=== PATIENT | male | born 1940 | race Caucasian/White ===

== ENCOUNTER 2016-09-25 06:15 | Inpatient (IN) | payer OTHER, MEDICARE ==
[~2016-09-25] VITALS: Ht 165.1 cm; Wt 72.6 kg
[~2016-09-25 06:15] MED LIST: ARTIFICIAL TEAR15 M2 OP; ASPIR 8181 MG PO; ATENOLOL50 MG PO; CALCIPOTRIENE0.0051 TOP; CITALOPRAM20 MG PO; HYDRODIURIL 2525 MG PO; LISINOPRIL20 MG PO; MULTIVITAMIN1 TAB PO; OMEPRAZOLE20 MG PO; PRESERVISION AR1 SGL PO; SIMVASTATIN80 MG PO; VESICARE 10MG10 MG PO
--- NOTE | 2016-09-25 06:19 | NUR ---
PT BIBA C/O INCREASING SOB. PT WAS DX WITH BRONCHITIS X2 WEEKS AGO. PT WOKE UP, AMBULATED TO THE BATHROOM, FELT SOB AND DID NOT EXPERIENCE RELIEF WITH HOME INHALER. UPON EMS ARRIVAL PT WAS 90% ON ROOM AIR, RECIEVED DUO NEB FROM EMS, NOW 97%. PT REPORTS FULL RELIEF FROM DUONEB.
--- NOTE | 2016-09-25 06:25 | NUR ---
MD SAM AT BEDSIDE EVALUATING PATIENT.
--- NOTE | 2016-09-25 06:34 | ED DYSPNEA/ASTHMA COMPLAINT ---
History of Present Illness General Chief Complaint: Dyspnea (COPD, CHF, Other) Stated Complaint: BIBA COPD? Source: patient, family, EMS Exam Limitations: no limitations Vital Signs & Intake/Output Vital Signs & Intake/Output Vital Signs Date Time Temp Pulse Resp B/P B/P Pulse O2 O2 Flow FiO2 Mean Ox Delivery Rate 09/25 0853 98.2 68 18 141/81 95 Nasal 2.0L Cannula 09/25 0835 97 Nasal 2.0L Cannula 09/25 0810 98.0 87 16 105/56 97 Nasal 2.0L Cannula 09/25 0657 99 Aerosol 9L Mask 09/25 621 97.7 62 20 172/86 99 Aerosol 6.0L Mask Allergies Coded Allergies: donepezil (From ARII-lighting) (Intermediate, VOMITTING 09/25/16) red dye (ONCE 09/25/16) Triage Note: PT BIBA C/O INCREASING SOB. PT WAS DX WITH BRONCHITIS X2 WEEKS AGO. PT WOKE UP, AMBULATED TO THE BATHROOM, FELT SOB AND DID NOT EXPERIENCE RELIEF WITH HOME INHALER. UPON EMS ARRIVAL PT WAS 90% ON ROOM AIR, RECIEVED DUO NEB FROM EMS, NOW 97%. PT REPORTS FULL RELIEF FROM DUONEB. Triage Nurses Notes Reviewed? yes Onset: Gradual Duration: hour(s): Timing: recent history Severity: moderate Activities at Onset: none Prior Episodes/Possible Cause: no prior episodes Modifying Factors: Improves With: rest. Associated Symptoms: cough, wheezing HPI: 75yo gentleman, h/o bronchitis, s/p abx last week, presents with cough, wheezing, dyspnea after waking up and going to the bathroom. He notes shortness of breath, but no fever, chills, chest pain. 911 called. His 02 sat was 90% on room air. He improved with a duo neb and 2liters nasal cannula to 97% 02 sat. (CECY RODRIGUEZ,NATASHA Clemons) Reconcile Medications Albuterol Sulfate (Proair Hfa) 90 MCG HFA.AER.AD 2 PUF INH Q4-6 PRN PRN SOB ( Reported) Aspirin (Aspirin*) 81 MG TAB.CHEW 1 TAB PO DAILY (Reported) Atenolol 50 MG TABLET 1.5 TAB PO DAILY HTN (Reported) Citalopram Hydrobromide (Citalopram HBr) 20 MG TABLET 1 TAB PO DAILY ANXIETY (Reported) Cyanocobalamin (Vitamin B-12) (Vitamin B12) 5,000 MCG TAB.RAPDIS 1,000 MCG PO DAILY SUPPLEMENT (Reported) Doxycycline Hyclate 100 MG CAPSULE 1 CAP PO BID PULMONARY INFILTRATES ( Reported) Finasteride 5 MG TABLET 1 TAB PO DAILY (Reported) Folic Acid 1 MG TABLET 1 TAB PO DAILY (Reported) Hydrochlorothiazide 25 MG TABLET 1 TAB PO DAILY HTN (Reported) Lisinopril 20 MG TABLET 1 TAB PO DAILY HTN (Reported) Methotrexate 2.5 MG TABLET 6 TAB PO QW (Reported) Multiple Vitamin (Multivitamins) 1 EACH TABLET 1 TAB PO DAILY (Reported) Omeprazole 20 MG CAPSULE.DR 1 CAP PO DAILY GERD (Reported) Simvastatin (Simvastatin*) 80 MG TABLET 0.5 TAB PO DAILY HIGH CHOLESTEROL ( Reported) Tamsulosin HCl 0.4 MG CAP.ER.24H 1 CAP PO DAILY BPH (Reported) (CARLA ORR DO) Past History Travel History Traveled to [place] past 21 day No Medical History Any Pertinent Medical History? 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 No (CECY RODRIGUEZ,NATASHA Clemons) Review of Systems Review of Systems Constitutional: Reports: no symptoms. EENTM: Reports: no symptoms. Respiratory: Reports: no symptoms. Cardiovascular: Reports: no symptoms. GI: Reports: no symptoms. Genitourinary: Reports: no symptoms. Musculoskeletal: Reports: no symptoms. Skin: Reports: no symptoms. Neurological/Psychological: Reports: no symptoms. Hematologic/Endocrine: Reports: no symptoms. Immunologic/Allergic: Reports: no symptoms. All Other Systems: Reviewed and Negative (CECY RODRIGUEZ,NATASHA Clemons) Physical Exam Physical Exam General Appearance: well developed/nourished, mild distress Head: atraumatic, normal appearance Eyes: Bilateral: normal appearance. Ears, Nose, Throat: normal pharynx, normal ENT inspection Neck: normal inspection, supple, full range of motion Respiratory: wheezing, respiratory distress Cardiovascular: regular rate/rhythm Gastrointestinal: normal bowel sounds, soft, non-tender Extremities: normal inspection, normal capillary refill Neurologic/Psych: no motor/sensory deficits, awake, alert, oriented x 3 Skin: intact, normal color, warm/dry Core Measures ACS in differential dx? No Severe Sepsis Present: No Septic Shock Present: No (CECY RODRIGUEZ,NATASHA Clemons) Progress Differential Diagnosis: asthma, bronchitis, CHF, COPD, pneumonia Plan of Care: Orders Procedure Date/time Status Heart Healthy Diet 09/25 L Active ED Holding Orders 09/25 1031 Active Admit to inpatient 09/25 1031 Active Vital Signs 09/25 1031 Active Code Status 09/25 1031 Active BLOOD CULTURE 09/26 639 Active BLOOD CULTURE 09/25 636 Active TROPONIN LEVEL 09/25 636 Complete COMPREHENSIVE METABOLIC PANEL 09/25 636 Complete CBC WITHOUT DIFFERENTIAL 09/25 636 Complete B-TYPE NATRIURETIC PEP (BNP) 09/25 636 Complete EKG 09/25 636 Active Laboratory Tests 09/25/16 0718: Anion Gap 10, Estimated GFR > 60, BUN/Creatinine Ratio 15.6, Glucose 107 H, Calcium 9.1, Total Bilirubin 0.8, AST 26, ALT 37, Alkaline Phosphatase 51, Troponin I < 0.01, Lhe-O-Phvqbfvlgub Pept 640 H, Total Protein 6.9, Albumin 3.7 , Globulin 3.2, Albumin/Globulin Ratio 1.2, CBC w Diff NO MAN DIFF REQ, RBC 4.14 L, MCV 100.2 H, MCH 33.7 H, RDW 14.5, MPV 8.6, Gran % 41.6 L, Lymphocytes % 43.8, Monocytes % 11.0 H, Eosinophils % 3.2, Basophils % 0.4, Absolute Granulocytes 1.5, Absolute Lymphocytes 1.6, Absolute Monocytes 0.4, Absolute Eosinophils 0.1, Absolute Basophils 0, PUBS MCHC 33.7 Microbiology 09/25 728 BLOOD: Blood Culture - RECD 09/25 720 BLOOD: Blood Culture - RECD Diagnostic Imaging: Viewed by Me: Radiology Read. Discussed w/RAD: Radiology Read. Initial ED EKG: normal axis, normal intervals, normal p-waves, normal QRS complex, normal sinus rhythm Hand-Off Endorsed To: CARLA ROR DO Endorsed Time: 0700 Pending: labs, Xray (CECY RODRIGUEZ,NATASHA Clemons) Departure Departure Disposition: STILL A PATIENT Condition: Stable Referrals: AHMET RODRIGUEZ,AHI Livingston (PCP/Family) Departure Forms: Customer Survey General Discharge Information (CECY RODRIGUEZ,NATASHA Clemons) Departure Clinical Impression Primary Impression: Dyspnea Secondary Impressions: COPD (chronic obstructive pulmonary disease), Hypokalemia , Ventricular ectopic activity Admission Note Spoke With: SARAH KUHN M.D Documentation of Exam: Documentation of any treatments & extenuating circumstances including Concerns Regarding Discharge (functional status, medication knowledge or non-compliance, living conditions, etc.) that warrant an admission rather than observation: [The patient needs admission for telemetry monitoring, potassium replacement, oxygen, consider pulmonary and cardiology consultations, IV steroids, IV diuresis] (CARLA ORR DO) Critical Care Note Critical Care Note Critical Care Time: 30-74 min (CECY RODRIGUEZ,NATASHA Clemons)
[2016-09-25] MEDS ORDERED: SIMVASTATIN80 M1 PO (06:35)
[2016-09-25] MEDS ORDERED: FINASTERIDE5 M1 PO (06:35)
[2016-09-25] MEDS ORDERED: PROAIR HFA8.5 GM INH (06:35)
[2016-09-25] MEDS ORDERED: CITALOPRAM HBR20 MG PO (06:35)
[2016-09-25] MEDS ORDERED: LISINOPRIL20 M1 PO (06:36)
[2016-09-25] MEDS ORDERED: DOXYCYCLINE HY100 M2 PO (06:36)
[2016-09-25] MEDS ORDERED: HYDROCHLOROTHIA25 M1 PO (06:36)
[2016-09-25] MEDS ORDERED: TAMSULOSIN HCL0.4 M1 PO (06:37)
[2016-09-25] MEDS ORDERED: OMEPRAZOLE20 M2 PO (06:49)
[2016-09-25] MEDS ORDERED: ASPIRIN81 M4 PO (06:50)
[2016-09-25] MEDS ORDERED: ATENOLOL50 M1 PO (06:50)
[2016-09-25] MEDS ORDERED: FOLIC ACID1 M1 PO (06:50)
[2016-09-25] MEDS ORDERED: METHOTREXATE2.5 M2 PO (06:50)
[2016-09-25] MEDS ORDERED: MULTIVITAMINS1 EAC9 PO (06:51)
[2016-09-25] MEDS ORDERED: VITAMIN B125000 MC1 PO (06:51)
--- NOTE | 2016-09-25 07:22 | RADIOLOGY REPORT ---
EXAMINATION: XR PORTABLE CHEST CLINICAL INFORMATION: Dyspnea. COMPARISON: Chest x-ray 08/26/2011. TECHNIQUE: Portable frontal view of the chest was obtained. FINDINGS: Low lung volumes. There is no pleural effusion or pneumothorax. Cardiac silhouette size is within normal limits. There is central vascular congestion and there are right perihilar and left suprahilar airspace opacities. No acute osseous findings. Bowel gas beneath the right hemidiaphragm. IMPRESSION: Central vascular congestion and mild right perihilar and left suprahilar airspace opacities that may reflect early edema versus pneumonia in the appropriate clinical context.
[2016-09-25 07:23] LABS: ABSOLUTE BASOPHIL COUNT 0 /CUMM (0.0-0.2); ABSOLUTE EOSINOPHIL COUNT 0.1 /CUMM (0.0-0.7); ABSOLUTE GRANULOCYTE CT 1.5 /CUMM (1.4-6.5); ABSOLUTE LYMPH COUNT 1.6 /CUMM (1.2-3.4); ABSOLUTE MONOCYTE COUNT 0.4 /CUMM (0.10-0.60); BASOPHIL % 0.4 % (0.0-2.0); EOSINOPHIL % 3.2 % (0-5); GRANULOCYTE % 41.6 % (42.2-75.2); HEMATOCRIT 41.5 % (42-52); MEAN CORPUSCULAR HGB 33.7 PG (27.0-31.0); MEAN CORPUSCULAR HGB CONC 33.7 G/DL (33.0-37.0); MEAN CORPUSCULAR VOLUME 100.2 FL (80.0-94.0); MEAN PLATELET VOLUME 8.6 FL (7.4-10.4); PLATELET COUNT 154 /CUMM (130-400); RBC DISTRIBUTION WIDTH 14.5 % (11.5-14.5); RED BLOOD CELL CT 4.14 /CUMM (4.70-6.10); WHITE BLOOD CELL COUNT 3.7 /CUMM (4.8-10.8)
--- NOTE | 2016-09-25 07:38 | NUR ---
BLOOD DRAWN AND SENT TO THE LAB (SST,LAV) 1ST SET OF CULTURES DRAWN AT 7:21 ALONG WITH ADDITIONAL BLUE,PINK AND COOL TOP 2ND SET OF BLOOD CULTURES DRAWN AT 7:29
--- NOTE | 2016-09-25 07:43 | NUR ---
MEDICATED ORDERED (SEE MAR)
--- NOTE | 2016-09-25 07:44 | NUR ---
CRITICAL TEST RESULTS [id number] HALEY AGUAYO 75 M TESTS AND RESULTS: POTASSIUM 2.7 Results received and read back by: ALAN GALVAN Results received date and time: 09/25/16 0744 The following provider was notified of the results, and read the results back: DR ORR Notified date and time: 09/25/16 at 0744
--- NOTE | 2016-09-25 08:15 | NUR ---
PT TRIALED ON ROOM AIR, STATES HE STARTED TO HAVE SOME TROUBLE BREATHING AGAIN. PLACED ON 2L O2 VIA NC, AND PT REPORTED THAT HE FELT BETTER AGAIN. SATS 97% WHILE ON 2L O2.
--- NOTE | 2016-09-25 10:03 | NUR ---
[facility] INFUSING (SEE MAR)
--- NOTE | 2016-09-25 10:35 | NUR ---
PT EATING HEART HEALTHY TRAY AT THIS TIME.
--- NOTE | 2016-09-25 10:35 | NUR ---
PT TO BE ADMITTED
--- NOTE | 2016-09-25 10:52 | NUR ---
PT ABLE TO STAND ON EDGE OF STETCHER TO USE COMMODE WITH ASSIST X1. PT REPOSITIONED IN BED. 2ND IV PLACED.
--- NOTE | 2016-09-25 12:12 | History & Physical ---
ANITHA CHOI 09/25/16 1150: General Information and HPI MD Statement: I have seen and personally examined HALEY AGUAYO and documented this H&P. The patient is a 75 year old M who presented with a patient stated chief complaint of [SHORTNESS OF BREATH]. Source of Information: patient, family Exam Limitations: no limitations History of Present Illness: Patient is a 75-year-old male with past medical history of hypertension, CVA, hyperlipidemia, GERD, macular degeneration, BPH, normal pressure hydrocephalus( gait and urinary problems) presented to the ED with a chief complaint of worsening shortness of breath for the past 1 month. Patient states that from Mother's Day he started having shortness of breath and dry cough. He was seen at the walk-in clinic and was diagnosed bronchitis. Received doxycycline(14 days), pro-air and DuoNeb's with no improvement in the shortness of breath. His dyspnea has worsened to the point that he is unable to walk from his bed to the bathroom. Therefore his called 911 to get him evaluated at the hospital. Is currently on 5 L of oxygen in the ER. Has no documented history of heart failure. Has seen a soap slabber Dr. Markell Richmond in [place] about 2 months ago for atypical chest pain and had an echocardiogram done. No documentation in our system. Patient denies any fevers, chills, nausea, vomiting, abdominal pain, chest pain, palpitations, urinary or bowel symptoms. No sick contacts, no recent travel. No history of orthopnea, leg swelling. Patient is an ex-smoker quit 30 years ago. In the ED on arrival, his sats was 90% on room air. He improved with a duo neb and 2liters nasal cannula to 97% 02 sat. He was very wheezy when the ER doctor examined him. Vitals in the ED :Temperature 97.7, pulse 62, respiration 20, blood pressure 172 /86, saturating 99% on 6 L aerosol mask. Labs showed white count 3.7, H&H 14/40 1.5, MCV 100.2, sodium 141, potassium 2.7 , BUN 14, creatinine 0.9, normal LFTs, troponin 0.01 Chest x-ray:Central vascular congestion and mild right perihilar and left suprahilar airspace opacities that may reflect early edema versus pneumonia. Patient received IV Solumedrol 125 mg, IV ceftriaxone and azithromycin and 20 KCl in the ED. Allergies/Medications Allergies: Coded Allergies: donepezil (From ARICEPT) (Intermediate, VOMITTING 09/25/16) red dye (ONCE 09/25/16) Home Med list Albuterol Sulfate (Proair Hfa) 90 MCG HFA.AER.AD 2 PUF INH Q4-6 PRN PRN SOB ( Reported) Aspirin (Aspirin*) 81 MG TAB.CHEW 1 TAB PO DAILY (Reported) Atenolol 50 MG TABLET 1.5 TAB PO DAILY HTN (Reported) Citalopram Hydrobromide (Citalopram HBr) 20 MG TABLET 1 TAB PO DAILY ANXIETY (Reported) Cyanocobalamin (Vitamin B-12) (Vitamin B12) 5,000 MCG TAB.RAPDIS 1,000 MCG PO DAILY SUPPLEMENT (Reported) Doxycycline Hyclate 100 MG CAPSULE 1 CAP PO BID PULMONARY INFILTRATES ( Reported) Finasteride 5 MG TABLET 1 TAB PO DAILY (Reported) Folic Acid 1 MG TABLET 1 TAB PO DAILY (Reported) Hydrochlorothiazide 25 MG TABLET 1 TAB PO DAILY HTN (Reported) Lisinopril 20 MG TABLET 1 TAB PO DAILY HTN (Reported) Methotrexate 2.5 MG TABLET 6 TAB PO QW (Reported) Multiple Vitamin (Multivitamins) 1 EACH TABLET 1 TAB PO DAILY (Reported) Omeprazole 20 MG CAPSULE.DR 1 CAP PO DAILY GERD (Reported) Simvastatin (Simvastatin*) 80 MG TABLET 0.5 TAB PO DAILY HIGH CHOLESTEROL ( Reported) Tamsulosin HCl 0.4 MG CAP.ER.24H 1 CAP PO DAILY BPH (Reported) Past History Travel History Traveled to [place] past 21 day No Medical History Neurological: CVA, dementia, DYSARTHRIA EENT: NONE Cardiovascular: hypertension, hyperlipidemia Respiratory: bronchitis, PULMONARY INFILTRATES Gastrointestinal: GERD Hepatic: NONE Renal: NONE Musculoskeletal: GAIT DISTURBANCE PSORIASIS Psychiatric: anxiety Endocrine: NONE Blood Disorders: B12 DEFICIENCY Cancer(s): NONE 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 EENTM: Reports: no symptoms. Cardiovascular: Reports: no symptoms. Respiratory: Reports: cough, short of breath, wheezing. GI: Reports: no symptoms. Genitourinary: Reports: no symptoms. Musculoskeletal: Reports: no symptoms. Skin: Reports: no symptoms. Neurological/Psychological: Reports: no symptoms. Exam & Diagnostic Data Last 24 Hrs of Vital Signs/I&O Vital Signs Date Time Temp Pulse Resp B/P B/P Pulse O2 O2 Flow FiO2 Mean Ox Delivery Rate 09/25 1121 68 141/81 09/25 1121 68 141/81 09/25 0953 98.2 68 18 141/81 95 Nasal 2.0L Cannula 09/25 0835 97 Nasal 2.0L Cannula 09/25 0810 98.0 87 16 105/56 97 Nasal 2.0L Cannula 09/25 0657 99 Aerosol 9L Mask 09/25 06 97.7 62 20 172/86 99 Aerosol 6.0L Mask Intake & Output 09/25 1600 09/25 0800 09/25 0000 Intake Total Output Total Balance Patient 74.843 kg Weight Weight Estimated Measurement Method Physical Exam General Appearance Alert, Oriented X3, Cooperative, Mild Distress, able to speak in full sentensces Skin No Rashes, No Breakdown, No Significant Lesion Skin Temp/Moisture Exam: Warm/Dry Sepsis Skin Exam (color): Normal for Ethnicity HEENT Atraumatic, PERRLA, EOMI, mucous membranes dry Neck Supple, No JVD Lymphatic Cervical nl Cardiovascular Regular Rate, Normal S1, Normal S2, No Murmurs Lungs Clear to Auscultation, Normal Air Movement Abdomen Normal Bowel Sounds, Soft, No Tenderness Neurological Normal Speech, Strength at 5/5 X4 Ext, Normal Tone Extremities No Clubbing, No Cyanosis, No Edema, Normal Pulses Last 24 Hrs of Labs/Reji: Laboratory Tests 09/25/16 0718: Anion Gap 10, Estimated GFR > 60, BUN/Creatinine Ratio 15.6, Glucose 107 H, Calcium 9.1, Total Bilirubin 0.8, AST 26, ALT 37, Alkaline Phosphatase 51, Troponin I < 0.01, Zsn-U-Nvnrbqbjhms Pept 640 H, Total Protein 6.9, Albumin 3.7 , Globulin 3.2, Albumin/Globulin Ratio 1.2, CBC w Diff NO MAN DIFF REQ, RBC 4.14 L, MCV 100.2 H, MCH 33.7 H, RDW 14.5, MPV 8.6, Gran % 41.6 L, Lymphocytes % 43.8, Monocytes % 11.0 H, Eosinophils % 3.2, Basophils % 0.4, Absolute Granulocytes 1.5, Absolute Lymphocytes 1.6, Absolute Monocytes 0.4, Absolute Eosinophils 0.1, Absolute Basophils 0, PUBS MCHC 33.7 Microbiology 09/25 728 BLOOD: Blood Culture - RECD 09/25 720 BLOOD: Blood Culture - RECD Assessment/Plan Assessment: Patient is a 75-year-old male with past medical history of hypertension, CVA, hyperlipidemia, GERD, macular degeneration, BPH, hydrocephalus ex vacuo? Presented to the ED with a chief complaint of worsening shortness of breath for the past 1 month. In the ED on arrival, his sats was 90% on room air. He improved with a duo neb and 2liters nasal cannula to 97% 02 sat. He was very wheezy when the ER doctor examined him. Vitals in the ED :Temperature 97.7, pulse 62, respiration 20, blood pressure 172 /86, saturating 99% on 6 L aerosol mask. Labs showed white count 3.7, H&H 14/40 1.5, MCV 100.2, sodium 141, potassium 2.7 , BUN 14, creatinine 0.9, normal LFTs, troponin 0.01 EKG:EKG NSR 64 with frequent PVCs, Left anterior fascicular block, LVH Chest x-ray:Central vascular congestion and mild right perihilar and left suprahilar airspace opacities that may reflect early edema versus pneumonia. Patient received IV Solumedrol 125 mg, IV ceftriaxone and azithromycin and 20 KCl in the ED. Assessment: * Acute hypoxemic respiratory failure likely secondary to pneumonia versus new onset CHF (unimpressive BNP) * Status post outpatient treatment failure with doxycycline * Hypokalemia * Hyperlipidemia * Hypertension * BPH * Normal pressure Hydrocephalus versus hydrocephalus ex Vacuo(baseline urinary and gait problems) * Bronchitis Plan * Admit patient to telemetry * Vitals per protocol * Rapp in, strict I's and O's and weight checks * 3 sets of troponins and EKG to rule out ACS * Continue Lasix IV 20 mg daily * No received 105 Solumedrol told in the ED. Continue 40 twice a day for now. Can discontinue steroids if no wheezing. * We will get echocardiogram * IV ceftriaxone and azithromycin in the ED. Continue the same. * Urine strep and Legionella * Pancultures cultures * Potassium repeated in the ED. Recheck potassium at 3 PM. * Cardiologic consult with Dr. Tillman * Continue home meds for hypertension and hyperlipidemia * DVT prophylaxis subcutaneous Lovenox * Mild pain pathway * Full code As Ranked By This Provider Problem List: 1. Hypokalemia 2. Pneumonia 3. Dyspnea Core Measures/Miscellaneous Acute Coronary Syndrome ACS Diagnosis: No Cerebrovascular Accident CVA/TIA Diagnosis: No Congestive Heart Failure CHF Diagnosis: Yes VTE (View Protocol) VTE Risk Factors: Age > 40 [facility] prophylaxis d/t: No contraindications No VTE Pharm Prophylaxis d/t: No contraindications VTE Diagnosis: No VTE Type: NONE VTE Confirmed by (Test): NONE Sepsis (View Protocol) Severe Sepsis Present: No Septic Shock Septic Shock Present: No Miscellaneous Documentation Attending Case Discussed With: SARAH KUHN M.D Primary Care Physician: HAI LEO MD Patient sees these Specialists [facility] [place] Level of Patient Care: Telemetry SARAH KUHN MD 09/25/16 1607: Attending MD Review Statement Attending Statement Attending MD Statement: examined this patient, discuss w/resident/PA/LOOK OUT TOWER FIRE WATCHER, agreed w/resident/PA/LOOK OUT TOWER FIRE WATCHER, discussed with family, reviewed EMR data (avail), discussed with nursing, amended to note Attending Assessment/Plan: 75-year-old male with history of sarcoidosis, hypertension, stroke, degeneration normal pressure hydrocephalus. Presented to emergency room with complaint of shortness of breath has been going on for about a month. Despite outpatient therapy for bronchitis with bronchodilators on doxycycline for 14 days symptoms persisted and actually got worse. The emergency room for evaluation. He was found afebrile and hemodynamically stable. There is no documentation of significant hypoxemia while in the emergency room. Chest x-ray showed no clear evidence of pneumonia. CT of the the chest reveals no evidence of acute pneumonia. These evidence of fibrosis and traction bronchiectasis is also bronchial wall thickening and bronchial stenosis in the right lung with subtotal collapse of the right middle lobe. There is arteriosclerosis of the coronary arteries and thoracic aorta. Patient is afebrile hemodynamically stable. He is saturating 98% on room air. On examination he is not in any respiratory distress. He is talking in complete sentences. He has no use of accessory muscles. He has good entry bilaterally with no added sounds. Heart sounds are regular. Abdomen is soft and nontender. He has no peripheral edema. In the emergency room he was started on IV his gentamicin/ceftriaxone as well as IV Solu-Medrol. Filled noted to be hypokalemic with minor ST-T wave changes. He has frequent PVCs. EKG is not significantly different from EKG in 2014. Patient denies chest pain or palpitations. Problems: 1. Right middle lobe collapse. Chest CT shows fibrosis/bronchiectasis 2. Hypokalemia 3. Abnormal EKG. Plan: -Admit to the inpatient general medical service. -Patient received potassium supplementation the ER. Repeat potassium level. Telemetry monitoring overnight. -Recommend pulmonary consultation due to lung collapse. Incentive spirometry. In view of concern for bronchiectasis continue empiric antibiotic therapy for now.
--- NOTE | 2016-09-25 12:59 | Cons- Cardiology ---
General Information and HPI Consulting Request Date of Consult: 09/25/16 Requested By: SARAH KUHN M.D Reason for Consult: Acute shortness of breath, cough, question congestive heart failure. Source of Information: patient, old records Exam Limitations: poor historian History of Present Illness: The patient is a 75-year-old man with known COPD. He tells me he had a cardiac workup in the past but was never told that he had any significant problems. It sounds like he had a negative cardiac catheterization many years ago but no information is available. The patient has been complaining of increasing cough for about one or 2 months which became worse yesterday and today and he was brought here by ambulance because he couldn't stop coughing. He does not actually describe shortness of breath. He does not have any chest pain, palpitations, dizziness, syncope. He does have hypertension and dyslipidemia and is on appropriate medications for this. Allergies/Medications Allergies: Coded Allergies: donepezil (From [employer]) (Intermediate, VOMITTING 09/25/16) red dye (ONCE 09/25/16) Home Med List: Albuterol Sulfate (Proair Hfa) 90 MCG HFA.AER.AD 2 PUF INH Q4-6 PRN PRN SOB ( Reported) Aspirin (Aspirin*) 81 MG TAB.CHEW 1 TAB PO DAILY (Reported) Atenolol 50 MG TABLET 1.5 TAB PO DAILY HTN (Reported) Citalopram Hydrobromide (Citalopram HBr) 20 MG TABLET 1 TAB PO DAILY ANXIETY (Reported) Cyanocobalamin (Vitamin B-12) (Vitamin B12) 5,000 MCG TAB.RAPDIS 1,000 MCG PO DAILY SUPPLEMENT (Reported) Doxycycline Hyclate 100 MG CAPSULE 1 CAP PO BID PULMONARY INFILTRATES ( Reported) Finasteride 5 MG TABLET 1 TAB PO DAILY (Reported) Folic Acid 1 MG TABLET 1 TAB PO DAILY (Reported) Hydrochlorothiazide 25 MG TABLET 1 TAB PO DAILY HTN (Reported) Lisinopril 20 MG TABLET 1 TAB PO DAILY HTN (Reported) Methotrexate 2.5 MG TABLET 6 TAB PO QW (Reported) Multiple Vitamin (Multivitamins) 1 EACH TABLET 1 TAB PO DAILY (Reported) Omeprazole 20 MG CAPSULE.DR 1 CAP PO DAILY GERD (Reported) Simvastatin (Simvastatin*) 80 MG TABLET 0.5 TAB PO DAILY HIGH CHOLESTEROL ( Reported) Tamsulosin HCl 0.4 MG CAP.ER.24H 1 CAP PO DAILY BPH (Reported) Current Medications: Current Medications Sig/Cynthia Start time Last Medication Dose Route Stop Time Status Admin Acetaminophen 325 MG Q6 PRN 09/25 1115 AC PO Albuterol Sulfate 3 ML ONCE ONE 09/25 0645 DC 09/25 INH 09/25 0646 0656 Atenolol 75 MG ONCE ONE 09/25 1045 DC 09/25 PO 09/25 1046 1121 Azithromycin 500 MG Q24H 09/27 799 AC Sodium Chloride 250 ML IV Azithromycin 500 MG ONCE ONE 09/25 0645 DC 09/25 Sodium Chloride 250 ML IV 09/25 0744 0743 Ceftriaxone Sodium 1,000 MG Q24H 09/27 799 AC IV Ceftriaxone Sodium 0 .STK-MED ONE 09/25 07 DC .ROUTE Ceftriaxone Sodium 1,000 MG ONCE ONE 09/25 0645 DC 09/25 IV 09/25 0646 0743 Citalopram 20 MG ONCE ONE 09/25 1045 DC 09/25 Hydrobromide PO 09/25 1046 1121 Enoxaparin Sodium 40 MG DAILY 09/25 1100 AC SC Finasteride 5 MG ONCE ONE 09/25 1045 DC 09/25 PO 09/25 1046 1121 Furosemide 20 MG DAILY 09/25 1218 AC IV PUSH Hydrochlorothiazide 25 MG ONCE ONE 09/25 1045 DC 09/25 PO 09/25 1046 1121 Ipratropium [place] 2.5 ML ONCE ONE 09/25 0645 DC 09/25 INH 09/25 0646 0656 Lisinopril 20 MG ONCE ONE 09/25 1045 DC 09/25 PO 09/25 1046 1121 Methylprednisolone 40 MG Q12 09/25 2200 AC IV Methylprednisolone 0 .STK-MED ONE 09/25 0738 DC .ROUTE Methylprednisolone 125 MG ONCE ONE 09/25 0645 DC 09/25 IV 09/25 0646 0743 Oxycodone HCl 5 MG Q6 PRN 09/25 1115 AC PO Oxycodone/ 2 TAB Q6 PRN 09/25 1115 AC Acetaminophen PO Potassium Chloride 10 MEQ ONCE ONE 09/25 1100 DC IV 09/25 1101 Potassium Chloride 10 MEQ ONCE ONE 09/25 0945 DC 09/25 IV 09/25 0946 1003 Review of Systems Review of Systems: He has no other complaints in the review of systems. 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 overactive bladder Surgical History Surgical History: 1 Exam & Diagnostic Data Vital Signs and I&O Vital Signs Date Time Temp Pulse Resp B/P B/P Pulse O2 O2 Flow FiO2 Mean Ox Delivery Rate 09/25 1121 68 141/81 09/25 1121 68 141/81 09/25 0953 98.2 68 18 141/81 95 Nasal 2.0L Cannula 09/25 0835 97 Nasal 2.0L Cannula 09/25 0810 98.0 87 16 105/56 97 Nasal 2.0L Cannula 09/25 0657 99 Aerosol 9L Mask 09/25 0522 97.7 62 20 172/86 99 Aerosol 6.0L Mask Intake & Output 09/25 0809/25 0000 09/24 1600 09/24 0800 09/24 0000 Intake Total Output Total Balance Patient 165 lb Weight Weight Estimated Measurement Method Physical Exam: Thin elderly man in no acute distress at this time. HEENT exam normal Chest decreased breath sounds, no wheezing, no rales, few rhonchi heard Heart regular rhythm no murmurs, gallops or rubs Abdomen benign Extremities good pulses, no edema Labs/Reji Results: Laboratory Tests 09/25 717 Chemistry Sodium (137 - 145 mmol/L) 141 Potassium (3.5 - 5.1 mmol/L) 2.7 *L Chloride (98 - 107 mmol/L) 101 Carbon Dioxide (22 - 30 mmol/L) 30 Anion Gap (5 - 16) 10 BUN (9 - 20 mg/dL) 14 Creatinine (0.7 - 1.2 mg/dL) 0.9 Estimated GFR (>60 ml/min) > 60 BUN/Creatinine Ratio (7 - 25 %) 15.6 Glucose (65 - 99 mg/dL) 107 H Calcium (8.4 - 10.2 mg/dL) 9.1 Total Bilirubin (0.2 - 1.3 mg/dL) 0.8 AST (17 - 59 U/L) 26 ALT (21 - 72 U/L) 37 Alkaline Phosphatase (< 127 U/L) 51 Troponin I (<0.11 ng/ml) < 0.01 [id number] Pept (<125 pg/mL) 640 H Total Protein (6.3 - 8.2 g/dL) 6.9 Albumin (3.5 - 5.0 g/dL) 3.7 Globulin (1.9 - 4.2 gm/dL) 3.2 Albumin/Globulin Ratio (1.1 - 2.2 %) 1.2 Hematology CBC w Diff NO MAN DIFF REQ WBC (4.8 - 10.8 /CUMM) 3.7 L RBC (4.70 - 6.10 /CUMM) 4.14 L Hgb (14.0 - 18.0 G/DL) 14.0 Hct (42 - 52 %) 41.5 L MCV (80.0 - 94.0 FL) 100.2 H MCH (27.0 - 31.0 PG) 33.7 H RDW (11.5 - 14.5 %) 14.5 Plt Count (130 - 400 /CUMM) 154 MPV (7.4 - 10.4 FL) 8.6 Gran % (42.2 - 75.2 %) 41.6 L Lymphocytes % (20.5 - 51.1 %) 43.8 Monocytes % (1.7 - 9.3 %) 11.0 H Eosinophils % (0 - 5 %) 3.2 Basophils % (0.0 - 2.0 %) 0.4 Absolute Granulocytes (1.4 - 6.5 /CUMM) 1.5 Absolute Lymphocytes (1.2 - 3.4 /CUMM) 1.6 Absolute Monocytes (0.10 - 0.60 /CUMM) 0.4 Absolute Eosinophils (0.0 - 0.7 /CUMM) 0.1 Absolute Basophils (0.0 - 0.2 /CUMM) 0 PUBS MCHC (33.0 - 37.0 G/DL) 33.7 Diagnostic Data EKG Results EKG shows sinus rhythm at a rate of 64 with frequent PVCs. There is left anterior fascicular block. There is borderline voltage for LVH. There is some minor ST-T wave abnormalities. Previous EKG from 2014 is similar except for increased ectopy on the current study. CXR Results Chest x-ray reveals unremarkable cardiac silhouette, prominence of the proximal pulmonary vessels, no pulmonary edema or pleural effusions. While this x-ray was read as increased pulmonary congestion I disagree and I feel that the changes are mostly due to pulmonary hypertension and lung disease. Assessment/Plan Assessment/Plan This is a 75-year-old man who presents with increased cough. He had wheezing when he came in which is improved after treatment. There is question of congestive heart failure, however his BNP is not impressive and his chest x-ray to me does not show congestive heart failure. I think this is all exacerbation of COPD. I think his ectopy is probably due to hypokalemia mostly. I recommend repleting his potassium, obtain a CAT scan of the chest for better definition of his pulmonary status. Serial EKGs and enzymes will be useful and an echocardiogram will be helpful. I don't think he should be treated with high -dose diuretics at this time pending the rest of his workup. Thank you for the consult. I will be following with you. Consult Acknowledgment - Thank you for your consult request.
--- NOTE | 2016-09-25 14:04 | NUR ---
MEDICATED WITH LOVENOX, ASPIRIN, LASIX, AND PRILOSEC (SEE MAR)
--- NOTE | 2016-09-25 14:05 | NUR ---
PT REFUSED CATHETER, IS ABLE TO STAND AND USE COMMODE WITH ASSIST X1.
--- NOTE | 2016-09-25 14:06 | NUR ---
REPEAT TROPONIN DRAWN AND SENT TO THE LAB K DRAWN @1400 INSTEAD OF 1500 AND SENT TO THE LAB.
--- NOTE | 2016-09-25 14:18 | NUR ---
INFORMED HOUSE STAFF THAT BLOOD WORK WAS DONE EARLY AND ASKED IF THEY COULD CHANGE THE ORDER, I WAS TOLD THAT ORDER TIME WOULD BE CHANGED TO 1400. RN NOTIFIED.
--- NOTE | 2016-09-25 15:06 | NUR ---
PT ADMITTED TO ROOM 171-1
--- NOTE | 2016-09-25 15:38 | NUR ---
ASSUMED CARE OF PT. RECIEVED REPORT FROM CARMELA Loya RN
--- NOTE | 2016-09-25 15:44 | CT SCAN REPORT ---
EXAMINATION: CT CHEST WITHOUT CONTRAST CLINICAL INFORMATION: 75-year-old male with acute respiratory failure. Hypoxemia. Possible COPD exacerbation. COMPARISON: CXR from 09/25/2016 TECHNIQUE: Multidetector volumetric CT imaging of the chest was done. Axial MIP volume rendering provided. Sagittal and coronal reformatted images were obtained. DLP: 277 mGy-cm FINDINGS: LUNGS AND PLEURA: There are fan-shaped regions of symmetric appearing peribronchial fibrosis, traction bronchiectasis and architectural distortion in the posterior, suprahilar regions of each upper lobe. There is mild luminal narrowing of the right mainstem bronchus. There is a stricture of the proximal right middle lobe bronchus with subtotal collapse of the right middle lobe. Also, there is wall thickening and luminal narrowing of segmental bronchi of the right lower lobe. However, no evidence of an endobronchial mass. A thin strand of mucus is seen in the lumen of the trachea. 0.3 cm calcified granuloma is present in the medial right lower lobe (image 277, series 4). 0.2 cm nodule in the superior segment right lower lobe might be calcified (image 171, series 4). There is a small, 0.2 cm noncalcified nodule in the lateral segment of the left lower lobe (image 299, series 4). There are some scattered linear opacities of scarring in the lung bases. No pulmonary consolidation or pleural effusion. MEDIASTINUM: The heart size is normal. Atherosclerotic calcification of coronary arteries, most severely affecting the left anterior descending coronary artery. There is calcific atherosclerosis of the thoracic aorta without aortic aneurysm. No pericardial effusion. The esophagus is mildly distended and without focal wall thickening. Thyroid gland is slightly heterogeneous and 0.4 cm calcified nodule is present in the left thyroid lobe. LYMPHATICS: No pathologic sized axillary, hilar or mediastinal lymph nodes. UPPER ABDOMEN: There is interposition of the hepatic flexure of the colon between the liver and right diaphragm. Adrenal glands are normal. Prominent stool within the colon suggests possibility of constipation. OSSEOUS STRUCTURES: No focal, suspicious lesions within the degenerated spine. There is skeletal hyperostosis with enthesophyte formation along spinous processes, posteriorly, and along the anterior spine. IMPRESSION: 1. No evidence of acute pneumonia, pleural effusion or lymphadenopathy. 2. Perihilar upper lobe predominant fibrosis, traction bronchiectasis and architectural distortion. These findings could be sequela of remote infectious disease, although differential diagnosis may include pneumoconiosis or sarcoidosis. 3. There is bronchial wall thickening and bronchial stenosis in the right lung, most severely affecting the proximal middle lobe bronchus, with subtotal collapse of the right middle lobe. 4. Calcific atherosclerosis of coronary arteries and thoracic aorta without aortic aneurysm.
--- NOTE | 2016-09-25 16:32 | NUR ---
PT SET UP TO EAT DINNER. REPORT CALLED TO YANNICK ON TELE UNIT
[2016-09-25 17:40] VITALS: BP 126/82
[2016-09-26 00:21] VITALS: BP 192/102
[2016-09-26 01:00] VITALS: BP 150/90
--- NOTE | 2016-09-26 06:59 | PN- Housestaff ---
JANICE BAINS MD 09/26/16 0659: Subjective Follow-up For: COPD exacerbation Right middle lobe collapse Tele-Events Since Last Visit: NSR/SB HR 50-60 No events Subjective: Patient seen and examined. He is seen lying flat in bed resting comfortably maintained on supplemental oxygen via nasal cannula. He appears to be in no acute distress. He reports that his shortness of breath remains stable and that he still has a persistent productive cough of white sputum. He otherwise feels fine and denies any new subjective complaints. Additionally he denies any lightheadedness/dizziness, headache, fever, chills, chest pain, palpitations, nausea, vomiting, diarrhea. No ovrnight events reported. Review of Systems Constitutional: Reports: see HPI. Objective Last 24 Hrs of Vital Signs/I&O Vital Signs Date Time Temp Pulse Resp B/P B/P Pulse O2 O2 Flow FiO2 Mean Ox Delivery Rate 09/26 0100 82 150/90 09/26 0021 98.8 85 18 192/102 99 Nasal Cannula 09/26 0000 98 Nasal 2.0L Cannula 09/25 1800 97 Nasal 2.0L Cannula 09/25 1740 98.3 84 18 126/82 97 09/25 1540 98.1 76 18 138/86 98 Nasal 2.0L Cannula 09/25 1312 97.5 74 18 136/78 98 Nasal 2.0L Cannula 09/25 1121 68 141/81 08 1121 68 141/81 09/25 0953 98.2 68 18 141/81 95 Nasal 2.0L Cannula 09/25 0835 97 Nasal 2.0L Cannula Intake & Output 09/26 1600 09/26 0800 09/26 0000 Intake Total 200 400 Output Total 375 1000 Balance -175 -600 Intake, Oral 200 400 Output, Urine 375 1000 Patient 72.575 kg Weight Weight Reported by Patient Measurement Method Physical Exam General Appearance: Alert, Oriented X3, Cooperative, No Acute Distress Other Physical Findings: General- well developed, well nourished elderly man in no acute distress HEENT- NCAT, PERRL, EOMI, anicteric sclera, moist mucous membranes, nasal cannula in place Chest- S1, S2 w/o m/g/r Lung- Diminsihed airflow bilaterally w/o wheezing/rhonchi/crackles Abdomen- Soft, nontender, nondistended, bowel sounds intact Neuro- Awake and alert, mild stuttered speach, CN II - XII grossly intact Ext- normal pulses, no cyanosis/clubbing/edema Current Medications: Current Medications Sig/Cynthia Start time Last Medication Dose Route Stop Time Status Admin Acetaminophen 325 MG Q6 PRN 09/25 1115 AC PO Albuterol Sulfate 3 ML Q4H 09/25 1730 DC INH Albuterol Sulfate 2 PUF Q4-6 PRN PRN 09/25 1345 AC INH Aspirin 0 .STK-MED ONE 09/25 1404 DC PO Aspirin 81 MG DAILY 09/25 1346 AC 09/25 PO 1404 Atenolol 75 MG DAILY 09/26 1000 AC PO Atenolol 75 MG ONCE ONE 09/25 1045 DC 09/25 PO 09/25 1046 1121 Atorvastatin Calcium 40 MG 1700 09/25 1700 AC 09/25 PO 2120 Azithromycin 500 MG Q24H 09/26 0800 AC Sodium Chloride 250 ML IV Ceftriaxone Sodium 1,000 MG Q24H 09/26 0800 AC IV Citalopram 20 MG DAILY 09/26 1000 AC Hydrobromide PO Citalopram 20 MG ONCE ONE 09/25 1045 DC 09/25 Hydrobromide PO 09/25 1046 1121 Enoxaparin Sodium 0 .STK-MED ONE 09/25 1405 DC SC Enoxaparin Sodium 40 MG DAILY 09/25 1100 AC 09/25 SC 1404 Finasteride 5 MG DAILY 09/25 1346 AC PO Finasteride 5 MG ONCE ONE 09/25 1045 DC 09/25 PO 09/25 1046 1121 Furosemide 0 .STK-MED ONE 09/25 1404 DC IV Furosemide 20 MG DAILY 09/25 1218 AC 09/25 IV PUSH 1404 Hydrochlorothiazide 25 MG DAILY 09/25 1347 AC PO Hydrochlorothiazide 25 MG ONCE ONE 09/25 1045 DC 09/25 PO 09/25 1046 1121 Lisinopril 20 MG DAILY 09/26 1000 AC PO Lisinopril 20 MG ONCE ONE 09/25 1045 DC 09/25 PO 09/25 1046 1121 Methotrexate 15 MG We 10/01 1400 AC PO Methylprednisolone 40 MG Q8 09/26 1400 DC IV Methylprednisolone 40 MG Q8 09/26 0800 AC IV Methylprednisolone 40 MG Q12 06/08 2200 DC 06/08 IV 2118 Omeprazole 40 MG ONCE ONE 09/25 2145 DC /08 PO 09/25 214 2150 Omeprazole 0 .STK-MED ONE 09/25 1404 DC PO Omeprazole 20 MG DAILY 09/25 1347 AC /08 PO 1404 Oxycodone HCl 5 MG Q6 PRN 09/25 1115 AC PO Oxycodone/ 2 TAB Q6 PRN 09/25 1115 AC Acetaminophen PO Potassium Chloride 40 MEQ ONCE ONE 09/25 1900 DC 06/08 PO 09/25 1901 2119 Potassium Chloride 10 MEQ ONCE ONE 09/25 1900 DC 06/08 IV 09/25 1901 2118 Potassium Chloride 20 MEQ ONCE ONE 09/25 1900 CAN PO 09/25 1901 Potassium Chloride 10 MEQ ONCE ONE 09/25 1100 DC 06/08 IV 09/25 1101 1258 Potassium Chloride 10 MEQ ONCE ONE 09/25 0945 DC 06/08 IV 09/25 0946 1003 Simethicone 40 MG ONCE ONE 09/25 2145 DC /08 PO 09/25 2146 2334 Tamsulosin HCl 0.4 MG DAILY 09/26 1000 AC PO Last 24 Hrs of Lab/Reji Results Last 24 Hrs of Labs/Mics: Laboratory Tests 09/26/16 0600: Sodium Pending, Potassium Pending, Chloride Pending, Carbon Dioxide Pending, Anion Gap Pending, BUN Pending, Creatinine Pending, BUN/Creatinine Ratio Pending , CBC w Diff Pending, WBC Pending, RBC Pending, Hgb Pending, Hct Pending, MCV Pending, MCH Pending, RDW Pending, Plt Count Pending, MPV Pending, PUBS MCHC Pending 09/25/162101: Urine Color STRAW, Urine Clarity CLDY H, Urine pH 7.0, Ur Specific [place] <= 1.005, Urine Protein NEG, Urine Ketones NEG, Urine Nitrite NEG, Urine Bilirubin NEG, Urine Urobilinogen 0.2, Ur Leukocyte Esterase NEG, Ur Microscopic SEDIMENT EXAMINED, Urine RBC 3-5, Urine WBC 1-3 H, Ur Epithelial Cells RARE, Urine Hemoglobin TRACE-INTACT H, Urine Glucose NEG 09/25/166: Troponin I < 0.01 09/25/16 1401: Troponin I < 0.01 09/25/16 1400: Troponin I Cancelled Microbiology 09/25 2101 URINE ROUT: Legionella Antigen - COMP 09/25 2101 URINE ROUT: Streptococcus pneumoniae Antigen (M - COMP 09/25 2101 URINE ROUT: Urine Culture - RES 09/25 1223 LOWER RESP: Respiratory Culture - COLB 09/25 122 LOWER RESP: Gram Stain - COLB Assessment/Plan Assessment: Patient does not appera to be in any respiratory distress and is adequately saturating on 2.0L via nasal cannula. 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 He does not have any metrics that suggestive an occult infection for which he is to be followed off antibiotics. Steroids to to be coverted to oral prednisone tomorrow. Patient had a swallow evaluation and subsequently had a modified barium swallow that he passed, he is continued on a normal diet without any other provisions. Patient had a mildly distended abdomen this morning, x-ray demonstrated a large amout of fecal material in the colon for which a bowel regimen was started Problem List: -Acute Bronchiectasis exacerbation -Constipation, now on bowel regimen -GERD, on omeprazole -Hypertension, on hydrochlorothiazide and lisinopril -Hyperlipidemia, on atorvastatin -BPH, on finasteride and flomax -Macular Degeneration -Normal Pressure Hydrocephalus -History of CVA Plan: -Telemetry -Discontinue antibiotics -Supplemental oxygen as needed, taper as tolerated -TRC with nebs -Change solumedrol to prednisone, discharge on taper -Obtain sputum culture if possible -Pulmonology consult, following -Cardiology consult, following -Bowel Regimen -DVT PPx with lovenox -FULL CODE Problem List: 1. Bronchiectasis Pain Ratin Pain Location: None Pain Goal: Pain 4 or less Pain Plan: See assessment Tomorrow's Labs & Rationales: CBC - infection surveillance BAM RODRIGUEZ,SARAH 09/26/16 1445: Attending MD Review Statement Attending Statement Attending MD Statement: examined this patient, discuss w/resident/PA/DRAGLINE ENGINEER, agreed w/resident/PA/DRAGLINE ENGINEER, discussed with family, reviewed EMR data (avail), discussed with nursing, discussed with case mgmt, amended to note Attending Assessment/Plan: Patient seen and examined. Resting comfortably and not in any acute distress. No events on telemetry. He reports feeling better. Denies shortness of breath at rest. Denies chest pain. Denies palpitations. He is afebrile hemodynamically stable. Currently saturation 90% on 1-2 L of oxygen. On examination lungs are clear bilaterally. No jugular venous distention. No peripheral edema. Abdomen is full but soft and nontender with normal bowel sounds. Extremities obtained that showed constipation. reports that last bowel movement was about 2 days ago. Problems: 1. Bronchiectasis 2. Constipation 3. Abnormal EKG; no cardiac symptoms. Negative cardiac enzymes. Recommendations: -Follow-up formal report of modified barium swallow. -Wean off oxygen supplementation. Mobilize patient. -Transition to oral steroid therapy tomorrow. Continue bronchodilator therapy. If patient continues to do well and may be discharged home over the weekend probably Thursday. -Begin bowel regimen for his constipation. -Outpatient follow-up with the pulmonary service for pulmonary function testing and follow-up.
--- NOTE | 2016-09-26 08:16 | PN- Student ---
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 Pt states that his symptoms began about a month ago with a mild dry cough and shortness of breath and was diagnosed with bronchitis by his PCP. His cough has been getting progressively worse despite treatment with doxycycline, proair and duoneb. He has mild chest pain in the lower left thorax associated with his cough but denies radiating pain, chest pressure, palpitations, orthopnea, or swelling in the legs. He also denies fever, chills, sick contacts, or recent travel. He is an ex-smoker and quit almost 30 yrs ago. He is being maintained on 2L supplemental oxygen and no significant o/n events were reported. Pt states that he had 2 langford in the past 2 months (collateral from appreciated). He reports weakness in his legs and now requires the use of a walker and has some problems finding his words. He lives with his in [place] and they have one grown daughter. He reports sleeping well, staying acitve, and eating home-cooked meals. He used to smoke less than a pack a week but quit more than 30 years ago. Vitals in the ED were T 97.7, P 62, RR 20, BP 172/86. Saturation on presentation was 90% but went up to 99% on 6 L oxygen. Review of Systems Constitutional: Denies unintentional weight loss, fever, and chills. HEENT: Reports dysphagia. Denies neck pain, changes in vision, or changes in hearing, nasal congestion, or sore throat. Neuro: Denies headache or lightheadedness. Denies sensory or perceptual deficits. Cardio: Denies chest pressure, orthopnea, palpitations, syncope, or peripheral edema. Pulm: Reports productive cough with white sputum with associated mild chest pain localized to the left anterior lower thorax and chest congestion. He denies wheezing or hemoptysis. GI: Reports diarrhea. Denies vomitting nausea, or bloody stools. MSK: Reports back pain. Denies joint pain or muscle ache. Objective Objective: Current Medications Sig/Cynthia Start time Last Medication Dose Route Stop Time Status Admin Acetaminophen 325 MG Q6 PRN 09/25 1115 AC PO Albuterol Sulfate 3 ML Q4H 09/25 1730 DC INH Albuterol Sulfate 2 PUF Q4-6 PRN PRN 09/25 1345 AC INH Aspirin 0 .STK-MED ONE 09/25 1404 DC PO Aspirin 81 MG DAILY 09/25 1346 AC 09/25 PO 1404 Atenolol 75 MG DAILY 09/26 1000 AC PO Atenolol 75 MG ONCE ONE 09/25 1045 DC 09/25 PO 09/25 1046 1121 Atorvastatin Calcium 40 MG 1700 08 1700 AC 09/25 PO 2120 Azithromycin 500 MG Q24H 09/26 0800 AC 09/26 Sodium Chloride 250 ML IV 0817 Ceftriaxone Sodium 1,000 MG Q24H 09/26 0800 AC 09/26 IV 0817 Citalopram 20 MG DAILY 09/26 1000 AC Hydrobromide PO Citalopram 20 MG ONCE ONE 09/25 1045 DC 09/25 Hydrobromide PO 09/25 1046 1121 Enoxaparin Sodium 0 .STK-MED ONE 09/25 1405 DC SC Enoxaparin Sodium 40 MG DAILY 09/25 1100 AC 09/25 SC 1404 Finasteride 5 MG DAILY 09/25 1346 AC PO Finasteride 5 MG ONCE ONE 09/25 1045 DC 09/25 PO 09/25 1046 1121 Furosemide 0 .STK-MED ONE 09/25 1404 DC IV Furosemide 20 MG DAILY 09/25 1218 AC 09/25 IV PUSH 1404 Hydrochlorothiazide 25 MG DAILY 09/25 1347 AC PO Hydrochlorothiazide 25 MG ONCE ONE 09/25 1045 DC 09/25 PO 09/25 1046 1121 Lisinopril 20 MG DAILY 09/26 1000 AC PO Lisinopril 20 MG ONCE ONE 09/25 1045 DC / PO 09/25 1046 1121 Methotrexate 15 MG We 10/01 1400 AC PO Methylprednisolone 40 MG Q8 09/26 1400 DC IV Methylprednisolone 40 MG Q8 09/26 0800 AC 09/26 IV 0817 Methylprednisolone 40 MG Q12 09/25 2200 DC 09/25 IV 2118 Omeprazole 40 MG ONCE ONE 09/25 2145 DC 09/25 PO 09/25 2146 2150 Omeprazole 0 .STK-MED ONE 09/25 1404 DC PO Omeprazole 20 MG DAILY 09/25 1347 AC 06/08 PO 1404 Oxycodone HCl 5 MG Q6 PRN 09/25 1115 AC PO Oxycodone/ 2 TAB Q6 PRN 09/25 1115 AC Acetaminophen PO Potassium Chloride 40 MEQ ONCE ONE 09/25 1900 DC / PO 09/25 1901 2119 Potassium Chloride 10 MEQ ONCE ONE 09/25 1900 DC / IV 09/25 1901 2118 Potassium Chloride 20 MEQ ONCE ONE 09/25 1900 CAN PO 09/25 1901 Potassium Chloride 10 MEQ ONCE ONE 09/25 1100 DC / IV 09/25 1101 1258 Potassium Chloride 10 MEQ ONCE ONE 09/25 0945 DC / IV 09/25 0946 1003 Simethicone 40 MG ONCE ONE 09/255 DC 09/25 PO 09/25 2146 2334 Tamsulosin HCl 0.4 MG DAILY 09/26 1000 AC PO Vital Signs Date Time Temp Pulse Resp B/P B/P Pulse O2 O2 Flow FiO2 Mean Ox Delivery Rate 09/26 0100 82 150/90 09/26 0021 98.8 85 18 192/102 99 Nasal Cannula 09/26 0000 98 Nasal 2.0L Cannula 09/25 1800 97 Nasal 2.0L Cannula 09/25 1740 98.3 84 18 126/82 97 09/25 1540 98.1 76 18 138/86 98 Nasal 2.0L Cannula 09/25 1312 97.5 74 18 136/78 98 Nasal 2.0L Cannula 09/25 1121 68 141/81 09/25 1121 68 141/81 09/25 0953 98.2 68 18 141/81 95 Nasal 2.0L Cannula Intake & Output 09/26 1600 09/26 0800 09/26 0000 Intake Total 200 400 Output Total 375 1000 Balance -175 -600 Intake, Oral 200 400 Output, Urine 375 1000 Patient 160 lb Weight Weight Reported by Patient Measurement Method Physical Exam General: A&Ox4. NAD. Cooperative and lying comfortably. HEENT: NCAT. PERRLA, EOMI. Gross hearing intact. Nasal passages clear. Mild xerostomia, no pharyngeal erythema. No lymphadenopathy. Cardio: Normal S1S2. No mrg. No JVD/HJR. 2+ DT/PT pulses, no peripheral edema. Pulm: Good air movement with wheezing across all lung chowdary. Normal chest expansion and AP diameter. Abd: NABS. No ttp, rebound, or guarding. Extremities: No clubbing or cyanosis. Results Results: Laboratory Tests 09/26/16 0600: Anion Gap 8, Estimated GFR > 60, BUN/Creatinine Ratio 18.9, CBC w Diff Pending, WBC Pending, RBC Pending, Hgb Pending, Hct Pending, MCV Pending, MCH Pending, RDW Pending, Plt Count Pending, MPV Pending, PUBS MCHC Pending 09/25/162101: Urine Color STRAW, Urine Clarity CLDY H, Urine pH 7.0, Ur Specific [place] <= 1.005, Urine Protein NEG, Urine Ketones NEG, Urine Nitrite NEG, Urine Bilirubin NEG, Urine Urobilinogen 0.2, Ur Leukocyte Esterase NEG, Ur Microscopic SEDIMENT EXAMINED, Urine RBC 3-5, Urine WBC 1-3 H, Ur Epithelial Cells RARE, Urine Hemoglobin TRACE-INTACT H, Urine Glucose NEG 09/25/16 2026: Troponin I < 0.01 09/25/16 1401: Troponin I < 0.01 09/25/16 1400: Troponin I Cancelled 09/25/16 0718: Anion Gap 10, Estimated GFR > 60, BUN/Creatinine Ratio 15.6, Glucose 107 H, Calcium 9.1, Total Bilirubin 0.8, AST 26, ALT 37, Alkaline Phosphatase 51, Troponin I < 0.01, Nur-F-[id number] Pept 640 H, Total Protein 6.9, Albumin 3.7 , Globulin 3.2, Albumin/Globulin Ratio 1.2, CBC w Diff NO MAN DIFF REQ, RBC 4.14 L, MCV 100.2 H, MCH 33.7 H, RDW 14.5, MPV 8.6, Gran % 41.6 L, Lymphocytes % 43.8, Monocytes % 11.0 H, Eosinophils % 3.2, Basophils % 0.4, Absolute Granulocytes 1.5, Absolute Lymphocytes 1.6, Absolute Monocytes 0.4, Absolute Eosinophils 0.1, Absolute Basophils 0, PUBS MCHC 33.7 Microbiology 09/25 2101 URINE ROUT: Legionella Antigen - COMP 09/25 2101 URINE ROUT: Streptococcus pneumoniae Antigen (M - COMP 09/25 2101 URINE ROUT: Urine Culture - RES 09/25 1223 LOWER RESP: Respiratory Culture - COLB 09/25 122 LOWER RESP: Gram Stain - COLB 09/25 728 BLOOD: Blood Culture - RECD 09/25 720 BLOOD: Blood Culture - RECD Assessment/Plan Assessment: CXR No evidence of acute pneumonia, pleural effusion, or lymphadenopathy. Perihilar upper lobe fibrosis and right middle lobe collapse. No mass lesion. No impressive findings for CHF. Pro BNP elevated 640 Urinalysis cloudy, negative for strep pneumo and legionella. 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 Pt denies orthopnea and there was no evidence of peripheral edema or crackles on auscultation. BNP and CXR were also not significant for CHF so his shortness of breath is likely due to pulmonary etiology. Significant findings of perihilar upper lobe fibrosis and right middle lobe collapse should raise concern for his worsening cough and shortness of breath. Sputum culture is pending but given pt's atelectasis, consider adding pseudomonas coverge to his abx treatment. Plan: #1 productive cough Worsening despite abx treatment and sumederol. Sputum cultures pending. CXR shows little evidence of pneumonia and exam was negative for lymphadenopathy or fever. Pulmonology consult concern over bronchielectasis and chronic aspiration given dysphagia. -sputum culture pending -continue abx and sumederol for now -consider pseudomonas coverage given atelectasis. -pulmonology consult appreciated -swallow evaluation for complaints of dysphasia and concerns of aspiration #2 shortness of breath proBNP elevated at 640. CXR not impressive for CHF. History and exam are also not suggestive. -cardiology consult does not reccomend diuresis at this time -hold Lasix -serial EKGs and enzymes to r/o ACS #3 BPH -continue tamulosin and finesteride #4 hypertension last BP was 150/90 (as high as 192/102 overnight) -continue lisinopril -considering augmenting with CCB
[2016-09-26 08:21] LABS: ABSOLUTE BASOPHIL COUNT 0 /CUMM (0.0-0.2); ABSOLUTE MONOCYTE COUNT 0.6 /CUMM (0.10-0.60); RED BLOOD CELL CT 4.09 /CUMM (4.70-6.10)
--- NOTE | 2016-09-26 08:28 | Cons- Pulmonary ---
General Information and HPI Consulting Request Date of Consult: 09/26/16 Requested By: jaqueline Reason for Consult: Pulmonary infiltrates cough and shortness of breath History of Present Illness: Patient is a distant smoker. He denies prior episodes pneumonia. He's admitted with increasing cough for months duration nonproductive shortness of breath and reduced oxygen saturation. CT scan of his chest shows chronic findings of upper lobe bronchiectasis and fibrosis and right-sided airway narrowing. There is no mass lesion. He reports cough with eating. Allergies/Medications Allergies: Coded Allergies: donepezil (From ARICEPT) (Intermediate, VOMITTING 09/25/16) red dye (ONCE 09/25/16) Home Med List: Albuterol Sulfate (Proair Hfa) 90 MCG HFA.AER.AD 2 PUF INH Q4-6 PRN PRN SOB ( Reported) Aspirin (Aspirin*) 81 MG TAB.CHEW 1 TAB PO DAILY (Reported) Atenolol 50 MG TABLET 1.5 TAB PO DAILY HTN (Reported) Citalopram Hydrobromide (Citalopram HBr) 20 MG TABLET 1 TAB PO DAILY ANXIETY (Reported) Cyanocobalamin (Vitamin B-12) (Vitamin B12) 5,000 MCG TAB.RAPDIS 1,000 MCG PO DAILY SUPPLEMENT (Reported) Doxycycline Hyclate 100 MG CAPSULE 1 CAP PO BID PULMONARY INFILTRATES ( Reported) Finasteride 5 MG TABLET 1 TAB PO DAILY (Reported) Folic Acid 1 MG TABLET 1 TAB PO DAILY (Reported) Hydrochlorothiazide 25 MG TABLET 1 TAB PO DAILY HTN (Reported) Lisinopril 20 MG TABLET 1 TAB PO DAILY HTN (Reported) Methotrexate 2.5 MG TABLET 6 TAB PO QW (Reported) Multiple Vitamin (Multivitamins) 1 EACH TABLET 1 TAB PO DAILY (Reported) Omeprazole 20 MG CAPSULE.DR 1 CAP PO DAILY GERD (Reported) Simvastatin (Simvastatin*) 80 MG TABLET 0.5 TAB PO DAILY HIGH CHOLESTEROL ( Reported) Tamsulosin HCl 0.4 MG CAP.ER.24H 1 CAP PO DAILY BPH (Reported) Review of Systems Review of Systems Constitutional: Denies: chills. Cardiovascular: Denies: chest pain, edema. Respiratory: Reports: cough, short of breath. Denies: hemoptysis, sputum production. GI: Denies: abdominal pain, diarrhea, melena. 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 Home Services at Home: Nursing, Physical Therapy Smoking Status: Former Smoker Exam & Diagnostic Data Last 24 Hrs of Vital Signs/I&O Vital Signs Date Time Temp Pulse Resp B/P B/P Pulse O2 O2 Flow FiO2 Mean Ox Delivery Rate 09/26 0100 82 150/90 09/26 0021 98.8 85 18 192/102 99 Nasal Cannula 09/26 0000 98 Nasal 2.0L Cannula 09/25 1800 97 Nasal 2.0L Cannula 09/25 1740 98.3 84 18 126/82 97 09/25 1540 98.1 76 18 138/86 98 Nasal 2.0L Cannula 09/25 1312 97.5 74 18 136/78 98 Nasal 2.0L Cannula 09/25 1121 68 141/81 08 1121 68 141/81 /08 0953 98.2 68 18 141/81 95 Nasal 2.0L Cannula 09/25 0835 97 Nasal 2.0L Cannula Intake & Output 09/26 1600 09/26 0800 09/26 0000 Intake Total 200 400 Output Total 375 1000 Balance -175 -600 Intake, Oral 200 400 Output, Urine 375 1000 Patient 160 lb Weight Weight Reported by Patient Measurement Method Comfortable gentleman in no acute distress oxygen saturation 2 L 99% exam of his chest shows clear lung chowdary are no wheezes or crackles cardiac exam shows a regular S1 and S2 without murmurs abdomen is distended and tympanitic bowel sounds are diminished there is no edema Last 48 Hrs of Labs/Reji: Laboratory Tests 09/26/16 0600: Anion Gap 8, Estimated GFR > 60, BUN/Creatinine Ratio 18.9, CBC w Diff Pending, WBC Pending, RBC Pending, Hgb Pending, Hct Pending, MCV Pending, MCH Pending, RDW Pending, Plt Count Pending, MPV Pending, PUBS MCHC Pending 09/25/162: Urine Color STRAW, Urine Clarity CLDY H, Urine pH 7.0, Ur Specific [place] <= 1.005, Urine Protein NEG, Urine Ketones NEG, Urine Nitrite NEG, Urine Bilirubin NEG, Urine Urobilinogen 0.2, Ur Leukocyte Esterase NEG, Ur Microscopic SEDIMENT EXAMINED, Urine RBC 3-5, Urine WBC 1-3 H, Ur Epithelial Cells RARE, Urine Hemoglobin TRACE-INTACT H, Urine Glucose NEG 09/25/16 2026: Troponin I < 0.01 09/25/16 1401: Troponin I < 0.01 09/25/16 1400: Troponin I Cancelled 09/25/16 0718: Anion Gap 10, Estimated GFR > 60, BUN/Creatinine Ratio 15.6, Glucose 107 H, Calcium 9.1, Total Bilirubin 0.8, AST 26, ALT 37, Alkaline Phosphatase 51, Troponin I < 0.01, Mnk-P-[id number] Pept 640 H, Total Protein 6.9, Albumin 3.7 , Globulin 3.2, Albumin/Globulin Ratio 1.2, CBC w Diff NO MAN DIFF REQ, RBC 4.14 L, MCV 100.2 H, MCH 33.7 H, RDW 14.5, MPV 8.6, Gran % 41.6 L, Lymphocytes % 43.8, Monocytes % 11.0 H, Eosinophils % 3.2, Basophils % 0.4, Absolute Granulocytes 1.5, Absolute Lymphocytes 1.6, Absolute Monocytes 0.4, Absolute Eosinophils 0.1, Absolute Basophils 0, PUBS MCHC 33.7 Microbiology 09/25 2101 URINE ROUT: Legionella Antigen - COMP 09/25 2101 URINE ROUT: Streptococcus pneumoniae Antigen (M - COMP Assessment/Plan Impression/Plan: 75-year-old gentleman admitted with shortness of breath and cough with a month's duration his CAT scan suggests evidence of fibrosis traction bronchiectasis and airway narrowing all of which appears chronic. There is no mass lesion. Concern is raised over exacerbation of bronchiectasis rather than COPD. Concern is raised over possibility of chronic aspiration of his history of cough with eating. As well as abdominal exam is abnormal Recommendations: Sputum C&S. Continue antibiotics. Swallowing evaluation. Flat Plate of the abdomen to evaluate distention. Rapidly taper oxygen and steroids Consult Acknowledgment - Thank you for your consult request.
[2016-09-26 08:42] LABS: ABSOLUTE EOSINOPHIL COUNT 0 /CUMM (0.0-0.7); ABSOLUTE GRANULOCYTE CT 9.7 /CUMM (1.4-6.5); ABSOLUTE LYMPH COUNT 1.5 /CUMM (1.2-3.4); BASOPHIL % 0.1 % (0.0-2.0); EOSINOPHIL % 0 % (0-5); HEMATOCRIT 41.2 % (42-52); MEAN CORPUSCULAR HGB CONC 33.8 G/DL (33.0-37.0); MEAN CORPUSCULAR VOLUME 100.7 FL (80.0-94.0); MEAN PLATELET VOLUME 9.3 FL (7.4-10.4); PLATELET COUNT 191 /CUMM (130-400); RBC DISTRIBUTION WIDTH 14.4 % (11.5-14.5)
[2016-09-26 08:47] LABS: GRANULOCYTE % 81.9 % (42.2-75.2); WHITE BLOOD CELL COUNT 11.9 /CUMM (4.8-10.8)
--- NOTE | 2016-09-26 09:15 | ECHOCARDIOGRAM REPORT ---
HALEY AGUAYO Age: 75 : 1940 Gender: M Exam Date: 09/25/2016 19:08 Exam Location: [place] Ht (in): 70 Wt (lb): 165 BSA: 1.93 BP: 136 / 78 Ordering Physician: ANITHA CHOI, Referring Physician: Kai Tillman MD Chief, SoC Technologist: Michelle Tejeda [facility] Room Number: 171 Indications: HEART FAILURE Rhythm: Sinus Technical Quality: Fair FINDINGS Left Ventricle Normal size left ventricle. Mild to moderate concentric left ventricular hypertrophy. Normal left ventricular ejection fraction visually estimated at >65 %. No obvious regional wall motion abnormalities. However there is mild uncoordination of left ventricular contractility.abnormal relaxation filling pattern of the left ventricle for age (stage 1 diastolic dysfunction). Right Ventricle The right ventricle is normal in size and function. Right Atrium The right atrium is normal in size. Left Atrium Mild left atrial dilatation. Mitral Valve Mild thickening/calcification of the mitral valve leaflets. Mild mitral annular calcification. Mild mitral regurgitation. Aortic Valve Focal thickening of the aortic valve cusps. No aortic stenosis. Trace to mild aortic regurgitation. Tricuspid Valve Structurally normal tricuspid valve. No tricuspid regurgitation. Unable to estimate the right ventricular systolic pressure. Pulmonic Valve Pulmonic valve not well visualized, grossly normal. Trace pulmonic regurgitation. Pericardium There is a small nonhemodynamically significant pericardial effusion seen No pleural effusion. Great Vessels Normal aortic root dimension. The aortic arch and great vessels are well seen and are normal. CONCLUSIONS Mild to moderate concentric left ventricular hypertrophy. Normal left ventricular ejection fraction visually estimated at >65 No obvious regional wall motion abnormalities. However there is mild uncoordination of left ventricular contractility. Mild left atrial dilatation. Mild thickening/calcification of the mitral valve leaflets. Mild mitral annular calcification. Mild mitral regurgitation. Focal thickening of the aortic valve cusps. No aortic stenosis. Trace to mild aortic regurgitation. Unable to estimate the right ventricular systolic pressure. There is a small nonhemodynamically significant pericardial effusion seen. No pleural effusion. Kai Tillman M.D. (Electronically Signed) Final Date: 26 September 2016 09:14 MEASUREMENTS (Male / Female) Normal Values 2D ECHO LV Diastolic Diameter PLAX 4.7 cm 4.2 - 5.9 / 3.9 - 5.3 cm LV Systolic Diameter PLAX 2.8 cm 2.1 - 4.0 cm LV Fractional Shortening PLAX 40.4 % 25 - 46 % LV Ejection Fraction 2D Teich 71.1 % IVS Diastolic Thickness 1.3 cm LVPW Diastolic Thickness 1.4 cm LV Relative Wall Thickness 0.6 RV Internal Dim ED PLAX 3.2 cm 1.9 - 3.8 cm LVOT Diameter 2.4 cm Aortic Root Diameter 3.2 cm LA Systolic Diameter LX 4.1 cm 3.0 - 4.0 / 2.7 - 3.8 cm LA Volume 55.0 cm 18 - 58 / 22 - 52 cm Ascending Aorta Diameter 3.2 cm DOPPLER AV Peak Velocity 161.0 cm/s AV Peak Gradient 10.4 mmHg AV Mean Velocity 110.0 cm/s AV Mean Gradient 5.0 mmHg AV Velocity Time Integral 33.9 cm LVOT Peak Velocity 97.0 cm/s LVOT Peak Gradient 3.8 mmHg LVOT Mean Velocity 67.1 cm/s LVOT Mean Gradient 2.0 mmHg LVOT Velocity Time Integral 18.3 cm LVOT Stroke Volume 82.8 cm AV Area Cont Eq vti 2.4 cm AV Area Cont Eq pk 2.7 cm MV Peak Velocity 120.0 cm/s MV Peak Gradient 5.8 mmHg MV Mean Velocity 66.3 cm/s MV Mean Gradient 2.0 mmHg Mitral E Point Velocity 113.0 cm/s MV PHT Velocity 122.0 cm/s MV Deceleration [place] 546.0 cm/s MV Pressure Half Time 67.0 ms MV Area PHT 3.3 cm MV Deceleration Time 187.0 ms PV Peak Velocity 109.0 cm/s PV Peak Gradient 4.8 mmHg PV Mean Velocity 68.9 cm/s PV Mean Gradient 2.0 mmHg PV Velocity Time Integral 18.2 cm LV E' Lateral Velocity 12.4 cm/s Mitral E to LV E' Lateral Ratio 9.1 LV E' Septal Velocity 5.2 cm/s Mitral E to LV E' Septal Ratio 21.9
--- NOTE | 2016-09-26 09:45 | PN- Cardiology ---
Subjective Subjective: The patient is feeling better today. He is not coughing as much. He is in sinus rhythm with PVCs on the monitor. His enzymes are negative 3. His potassium is 3.7. His echocardiogram showed good left ventricular systolic function. His CT of the chest showed a lot of pulmonary abnormalities but there is no indication of any pulmonary edema. Objective Vital Signs and I&Os Vital Signs Date Time Temp Pulse Resp B/P B/P Pulse O2 O2 Flow FiO2 Mean Ox Delivery Rate 09/26 0100 82 150/90 09/26 0021 98.8 85 18 192/102 99 Nasal Cannula 06 0000 98 Nasal 2.0L Cannula 09/25 1800 97 Nasal 2.0L Cannula 09/25 1740 98.3 84 18 126/82 97 09/25 1540 98.1 76 18 138/86 98 Nasal 2.0L Cannula 09/25 1312 97.5 74 18 136/78 98 Nasal 2.0L Cannula 09/25 1121 68 141/81 09/25 1121 68 141/81 09/25 0953 98.2 68 18 141/81 95 Nasal 2.0L Cannula Intake & Output 09/26 1600 09/26 0800 09/26 0000 09/25 1600 09/25 0800 09/25 0000 Intake Total 200 400 Output Total 375 1000 Balance -175 -600 Intake, Oral 200 400 Output, Urine 375 1000 Patient 160 lb 165 lb Weight Weight Reported by Patient Estimated Measurement Method Physical Exam: On physical he is comfortable. He is not coughing at the moment. HEENT exam is normal Chest reveals a few scattered rhonchi only Heart reveals regular rhythm and an S4 gallop but no murmurs Extremities no edema Current Medications: Current Medications Sig/Cynthia Start time Last Medication Dose Route Stop Time Status Admin Acetaminophen 325 MG Q6 PRN 09/25 1115 AC PO Albuterol Sulfate 3 ML Q4H 09/25 1730 DC INH Albuterol Sulfate 2 PUF Q4-6 PRN PRN 09/25 1345 AC INH Aspirin 0 .STK-MED ONE 09/25 1404 DC PO Aspirin 81 MG DAILY 09/25 1346 AC 09/25 PO 1404 Atenolol 75 MG DAILY 09/26 1000 AC PO Atenolol 75 MG ONCE ONE 09/25 1045 DC 09/25 PO 09/25 1046 1121 Atorvastatin Calcium 40 MG 1700 06/08 1700 AC 09/25 PO 2120 Azithromycin 500 MG Q24H 09/26 0800 AC 09/26 Sodium Chloride 250 ML IV 0817 Ceftriaxone Sodium 1,000 MG Q24H 09/26 0800 AC 09/26 IV 0817 Citalopram 20 MG DAILY 09/26 1000 AC Hydrobromide PO Citalopram 20 MG ONCE ONE 09/25 1045 DC 09/25 Hydrobromide PO 09/25 1046 1121 Enoxaparin Sodium 0 .STK-MED ONE 09/25 1405 DC SC Enoxaparin Sodium 40 MG DAILY 09/25 1100 AC 09/25 SC 1404 Finasteride 5 MG DAILY 09/25 1346 AC PO Finasteride 5 MG ONCE ONE 09/25 1045 DC 09/25 PO 09/25 1046 1121 Furosemide 0 .STK-MED ONE 09/25 1404 DC IV Furosemide 20 MG DAILY 09/25 1218 DC 09/25 IV PUSH 1404 Hydrochlorothiazide 25 MG DAILY 09/25 1347 AC PO Hydrochlorothiazide 25 MG ONCE ONE 09/25 1045 DC 09/25 PO 09/25 1046 1121 Lisinopril 20 MG DAILY 09/26 1000 AC PO Lisinopril 20 MG ONCE ONE 09/25 1045 DC 09/25 PO 09/25 1046 1121 Methotrexate 15 MG We 10/01 1400 AC PO Methylprednisolone 40 MG Q8 09/26 1400 DC IV Methylprednisolone 40 MG Q8 09/26 0800 AC 09/26 IV 0817 Methylprednisolone 40 MG Q12 09/25 2200 DC 09/25 IV 2118 Omeprazole 40 MG ONCE ONE 09/25 2145 DC 09/25 PO 09/25 2146 2150 Omeprazole 0 .STK-MED ONE 09/25 1404 DC PO Omeprazole 20 MG DAILY 09/25 1347 AC 09/25 PO 1404 Oxycodone HCl 5 MG Q6 PRN 09/25 1115 AC PO Oxycodone/ 2 TAB Q6 PRN 09/25 1115 AC Acetaminophen PO Potassium Chloride 40 MEQ ONCE ONE 09/25 1900 DC 08 PO 09/25 1901 2119 Potassium Chloride 10 MEQ ONCE ONE 09/25 1900 DC 08 IV 09/25 1901 2118 Potassium Chloride 20 MEQ ONCE ONE 09/25 1900 CAN PO 09/25 1901 Potassium Chloride 10 MEQ ONCE ONE 09/25 1100 DC 09/25 IV 09/25 1101 1258 Potassium Chloride 10 MEQ ONCE ONE 09/25 0945 DC 09/25 IV 09/25 0946 1003 Simethicone 40 MG ONCE ONE 09/25 2145 DC 09/25 PO 09/25 2146 2334 Tamsulosin HCl 0.4 MG DAILY 09/26 1000 AC PO Results Last 48 Hrs of Labs/Mics: Laboratory Tests 09/26/16 0600: Anion Gap 8, Estimated GFR > 60, BUN/Creatinine Ratio 18.9, CBC w Diff NO MAN DIFF REQ, RBC 4.09 L, MCV 100.7 H, MCH 34.0 H, RDW 14.4, MPV 9.3, Gran % 81.9 H, Lymphocytes % 13.0 L, Monocytes % 5.0, Eosinophils % 0, Basophils % 0.1, Absolute Granulocytes 9.7 H, Absolute Lymphocytes 1.5, Absolute Monocytes 0.6, Absolute Eosinophils 0, Absolute Basophils 0, PUBS MCHC 33.8 09/25/162: Urine Color STRAW, Urine Clarity CLDY H, Urine pH 7.0, Ur Specific [place] <= 1.005, Urine Protein NEG, Urine Ketones NEG, Urine Nitrite NEG, Urine Bilirubin NEG, Urine Urobilinogen 0.2, Ur Leukocyte Esterase NEG, Ur Microscopic SEDIMENT EXAMINED, Urine RBC 3-5, Urine WBC 1-3 H, Ur Epithelial Cells RARE, Urine Hemoglobin TRACE-INTACT H, Urine Glucose NEG 09/25/16 2026: Troponin I < 0.01 09/25/16 1401: Troponin I < 0.01 09/25/16 1400: Troponin I Cancelled 09/25/16 0718: Anion Gap 10, Estimated GFR > 60, BUN/Creatinine Ratio 15.6, Glucose 107 H, Calcium 9.1, Total Bilirubin 0.8, AST 26, ALT 37, Alkaline Phosphatase 51, Troponin I < 0.01, Plh-G-Fgwiuqnqyet Pept 640 H, Total Protein 6.9, Albumin 3.7 , Globulin 3.2, Albumin/Globulin Ratio 1.2, CBC w Diff NO MAN DIFF REQ, RBC 4.14 L, MCV 100.2 H, MCH 33.7 H, RDW 14.5, MPV 8.6, Gran % 41.6 L, Lymphocytes % 43.8, Monocytes % 11.0 H, Eosinophils % 3.2, Basophils % 0.4, Absolute Granulocytes 1.5, Absolute Lymphocytes 1.6, Absolute Monocytes 0.4, Absolute Eosinophils 0.1, Absolute Basophils 0, PUBS MCHC 33.7 Microbiology 09/25 2101 URINE ROUT: Legionella Antigen - COMP 09/25 2101 URINE ROUT: Streptococcus pneumoniae Antigen (M - COMP Recent Imaging Studies: CONCLUSIONS Mild to moderate concentric left ventricular hypertrophy. Normal left ventricular ejection fraction visually estimated at >65 No obvious regional wall motion abnormalities. However there is mild uncoordination of left ventricular contractility. Mild left atrial dilatation. Mild thickening/calcification of the mitral valve leaflets. Mild mitral annular calcification. Mild mitral regurgitation. Focal thickening of the aortic valve cusps. No aortic stenosis. Trace to mild aortic regurgitation. Unable to estimate the right ventricular systolic pressure. There is a small nonhemodynamically significant pericardial effusion seen. No pleural effusion. Kai Tillman M.D. (Electronically Signed) Final Date: 26 September 2016 09:14 Assessment/Plan Assessment/Plan The patient is improved from a pulmonary standpoint. I believe he has acute tracheobronchitis and is being treated with respiratory therapy and antibiotics appropriately. I don't think there is any evidence for congestive heart failure at this point. He is still having some PVCs. I recommend just continuing him on the monitor 24 hours more and making sure his potassium is in the normal range over 4.0. Continue telemetry? Yes
[2016-09-26 10:00] VITALS: BP 188/90
--- NOTE | 2016-09-26 14:40 | RADIOLOGY REPORT ---
EXAMINATION: XR ABDOMEN MULTIPLE VIEWS CLINICAL INDICATION: Abdominal distention. Evaluate for ileus or bowel obstruction. COMPARISON: [facility] dated 04/10/2014. TECHNIQUE: Supine and upright views of the abdomen. FINDINGS: Nonobstructive bowel gas pattern with mild gaseous distention of small and large bowel loops. Fair amount of stool seen throughout the colon, most concentrated in the ascending colon and rectosigmoid colon. No abnormal air-fluid levels or evidence of free air on upright view. S-shaped thoracolumbar scoliosis with multilevel degenerative changes in the spine seen. Phleboliths seen in the left lower pelvis. Arterial vascular calcifications seen in the groins bilaterally. IMPRESSION: No evidence of bowel obstruction or perforation. Large amount of fecal material in the colon suggests constipation. Clinical correlation requested.
--- NOTE | 2016-09-26 14:41 | Patient Discharge Instructions ---
Discharge Instructions General Discharge Information Special Instructions: Take prednisone as directed. Your atenolol dose has changed, please take at the new dose. Take Amlodipine as directed. Your dose of lisinopril as also changed. Please take this medication at its new dose. Take potassium supplements as directed for one week. Obtain repeat labs to assess for this in one week. 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 Acute Coronary Syndrome Inclusion Criteria At DC or during hospital stay patient has or had the following: ACS DIAGNOSIS No Discharge Core Measures Meds if any: Prescribed or Continued at Discharge Meds if any: NOT Prescribed or Continued at Discharge Congestive Heart Failure Inclusion Criteria At DC or during hospital stay patient has or had the following: CHF DIAGNOSIS No Discharge Core Measures Meds if any: Prescribed or Continued at Discharge Meds if any: NOT Prescribed or Continued at Discharge Cerebrovascular accident Inclusion Criteria At DC or during hospital stay patient has or had the following: CVA/TIA Diagnosis No Discharge Core Measures Meds if any: Prescribed or Continued at Discharge Meds if any: NOT Prescribed or Continued at Discharge Venous thromboembolism Inclusion Criteria VTE Diagnosis No VTE Type NONE VTE Confirmed by (Test) NONE Discharge Core Measures - Per Current guidelines, there needs to be overlap - treatment for the first 5 days of Warfarin therapy. - If discharged on Warfarin prior to 5 days of - overlap therapy, the patient will need to be - assessed for post discharge needs including - *Post discharge parental anticoagulation - *Warfarin and/or parental anticoagulation education - *Follow up date to check INR post discharge At least 5 days overlap therapy as Inpatient No Meds if any: Prescribed or Continued at Discharge Note: Overlap Therapy is Warfarin and Anticoagulant Meds if any: NOT Prescribed or Continued at Discharge
[2016-09-26] MEDS ORDERED: PREDNISONE10 M2 PO (15:05)
--- NOTE | 2016-09-26 15:24 | RADIOLOGY REPORT ---
EXAMINATION: XR MODIFIED BARIUM SWALLOW CLINICAL INFORMATION: Dysphagia, history of supranuclear palsy CVA, shortness of breath, difficulty swallowing COMPARISON: None TECHNIQUE: Videotaped real-time fluoroscopic evaluation of the patient's swallow was performed in conjunction with speech therapy through the administration of various textured food and barium, including puree, honey, nectar, thin, and solid consistencies. Patient was in a left seated lateral position. FINDINGS: Patient demonstrated good oral bolus formation. There was a delay in swallow trigger mechanism with spillage of fluid into the vallecula throughout the study, and also into the piriform sinuses with nectar consistency. There was good contraction and elevation of the soft palate with no evidence of nasopharyngeal reflux. There was good anterior-superior excursion of the laryngeal-hyoid complex with good posterior-inferior tipping of the epiglottis. Mild residual material was seen in the valleculae, piriform sinuses, and posterior pharyngeal wall with thin liquids; this subsequently cleared with cued additional swallow. Prominent cricopharyngeus muscle is noted. No penetration or aspiration was observed throughout the study. FLUOROSCOPY TIME: 2 minutes NUMBER OF IMAGES: 18 series IMPRESSION: No penetration or aspiration was observed. Please see speech pathology report for specific diet recommendations.
[2016-09-26 15:30] VITALS: BP 138/78
--- NOTE | 2016-09-26 20:00 | NUR ---
NURSING NOTE; PT INCONTINENT ONLY SMALL AMOUNT OF URINE. BLADDER SCAN DONE SHOWING 450-550 ML. PT STRAIGHT CATHED WITH SOME DIFFICULTY FOR 575 ML AT 1950. MADE AWARE. PT PLACED ON STRAIGHT CATH PROTOCOL. WILL CONTINUE TO MONITOR.
[2016-09-27 00:26] VITALS: BP 142/82
--- NOTE | 2016-09-27 07:49 | PN- Student ---
Subjective Subjective: Pt was seen an examined at the bedside. He was alert and lying comfortably in his bed. He stated that he had some trouble sleeping last night and woke up multiple times in the middle of the night confused and not sure of where he was. Today he reports feeling well. He still has some productive cough with clear sputum but denies shortness of breath, wheezing, chest pain, chest tightness, swelling in the legs, or palpitations. He also reports having a bowel movement since yesterday and denies diarrhea or blood in the stool. No o/n events reported. Review of Systems Constitutional: Denies fever, chills, unintentional weight loss/gain. HEENT: Denies headache, changes in vision/hearing, nasal congestion, sore throat. Cardiac: Denies chest pain/tightness, swelling in the legs, or palpitations. Pulm: Reports occasional productive cough with white sputum. Denies shortness of breath, wheezing, or pleuritic pain. GI: Denies nausea, vomitting, diarrhea, or bloody stool. MSK: Reports back pain. Denies joint pain or muscle ache. Objective Objective: Current Medications Sig/Cynthia Start time Last Medication Dose Route Stop Time Status Admin Acetaminophen 325 MG Q6 PRN 09/25 1115 AC PO Albuterol Sulfate 2 PUF Q4-6 PRN PRN 09/25 1345 AC INH Artificial Tears 2 GTT TID 09/26 1600 CAN OPH Aspirin 81 MG DAILY 09/25 1346 AC 09/26 PO 0947 Atenolol 75 MG DAILY 09/26 1000 AC 09/26 PO 0946 Atorvastatin Calcium 40 MG 1700 09/25 1700 AC 09/26 PO 1631 Azithromycin 500 MG Q24H 09/26 0800 DC 09/26 Sodium Chloride 250 ML IV 0817 Ceftriaxone Sodium 1,000 MG Q24H 09/26 0800 DC 09/26 IV 0817 Citalopram 20 MG DAILY 09/26 1000 AC 09/26 Hydrobromide PO 0947 Docusate Sodium 100 MG DAILY 09/26 1445 AC PO Enoxaparin Sodium 40 MG DAILY 09/25 1100 AC 09/26 SC 0946 Finasteride 5 MG DAILY 09/25 1346 AC 09/26 PO 0946 Furosemide 20 MG DAILY 09/25 1218 DC 09/25 IV PUSH 1404 Hydrochlorothiazide 25 MG DAILY 06/08 1347 AC 09/26 PO 0947 Lisinopril 20 MG DAILY 09/26 1000 AC 09/26 PO 0946 Methotrexate 15 MG We 10/01 1400 AC PO Methylprednisolone 40 MG Q8 09/26 1400 DC IV Methylprednisolone 40 MG Q8 09/26 0800 DC 09/26 IV 1443 Methylprednisolone 40 MG Q12 09/25 2200 DC 09/25 IV 2118 Omeprazole 20 MG DAILY 09/25 1347 AC 09/26 PO 0946 Oxycodone HCl 5 MG Q6 PRN 09/25 1115 AC PO Oxycodone/ 2 TAB Q6 PRN 09/25 1115 AC Acetaminophen PO Patient Medication 1 ED .STK-MED ONE 09/26 1432 IL Teaching ED 09/26 1433 Polyethylene Glycol 17 GM DAILY 09/26 1446 AC 09/26 PO 1632 Potassium Chloride 20 MEQ ONCE ONE 09/26 1600 DC 09/26 PO 09/26 1601 1817 Prednisone 40 MG DAILY 09/27 1000 AC PO Senna 187 MG AT BEDTIME 09/26 2200 AC 09/26 PO 1632 Tamsulosin HCl 0.4 MG DAILY 09/26 1000 AC 09/26 PO 0947 Tetrahydrozoline HCl 1 GTT Q6 09/26 1334 DC OPH Tetrahydrozoline HCl 1 GTT Q8P PRN 09/26 1330 AC 09/26 OPH 1632 Vital Signs Date Time Temp Pulse Resp B/P B/P Pulse O2 O2 Flow FiO2 Mean Ox Delivery Rate 09/27 0026 98.0 76 20 142/82 96 09/26 1934 95 Room Air 09/26 1600 Nasal 1.0L Cannula 09/26 1530 98.5 72 16 138/78 95 Nasal 1.0L Cannula 09/26 1355 Nasal 1.0L Cannula 09/26 1000 98.1 84 20 188/90 98 Nasal 2.0L Cannula 09/26 0947 90 188/90 09/26 0846 90 188/90 09/26 0846 90 188/90 09/26 08 97 Nasal 2.0L Cannula Intake & Output 09/27 0809/27 0000 09/26 1600 09/26 0800 09/26 0000 09/25 1600 Intake Total 40 520 400 200 400 Output Total 550 575 951 068 0570 Balance -510 -55 300 -175 -600 Intake, Oral 40 520 400 200 400 Number 0 Bowel Movements Output, Urine 550 575 178 576 3918 Patient 160 lb Weight Weight Reported by Patient Measurement Method Results Results: Laboratory Tests 09/27/16 0610: CBC w Diff Pending, WBC Pending, RBC Pending, Hgb Pending, Hct Pending, MCV Pending, MCH Pending, RDW Pending, Plt Count Pending, MPV Pending, PUBS MCHC Pending 09/26/16 0600: Anion Gap 8, Estimated GFR > 60, BUN/Creatinine Ratio 18.9, CBC w Diff NO MAN DIFF REQ, RBC 4.09 L, MCV 100.7 H, MCH 34.0 H, RDW 14.4, MPV 9.3, Gran % 81.9 H, Lymphocytes % 13.0 L, Monocytes % 5.0, Eosinophils % 0, Basophils % 0.1, Absolute Granulocytes 9.7 H, Absolute Lymphocytes 1.5, Absolute Monocytes 0.6, Absolute Eosinophils 0, Absolute Basophils 0, PUBS MCHC 33.8 09/25/16 2102: Urine Color STRAW, Urine Clarity CLDY H, Urine pH 7.0, Ur Specific [place] <= 1.005, Urine Protein NEG, Urine Ketones NEG, Urine Nitrite NEG, Urine Bilirubin NEG, Urine Urobilinogen 0.2, Ur Leukocyte Esterase NEG, Ur Microscopic SEDIMENT EXAMINED, Urine RBC 3-5, Urine WBC 1-3 H, Ur Epithelial Cells RARE, Urine Hemoglobin TRACE-INTACT H, Urine Glucose NEG 09/25/16 2026: Troponin I < 0.01 09/25/16 1401: Troponin I < 0.01 09/25/16 1400: Troponin I Cancelled 09/25/16 0718: Anion Gap 10, Estimated GFR > 60, BUN/Creatinine Ratio 15.6, Glucose 107 H, Calcium 9.1, Total Bilirubin 0.8, AST 26, ALT 37, Alkaline Phosphatase 51, Troponin I < 0.01, Bba-C-Iyvnaapuuno Pept 640 H, Total Protein 6.9, Albumin 3.7 , Globulin 3.2, Albumin/Globulin Ratio 1.2, CBC w Diff NO MAN DIFF REQ, RBC 4.14 L, MCV 100.2 H, MCH 33.7 H, RDW 14.5, MPV 8.6, Gran % 41.6 L, Lymphocytes % 43.8, Monocytes % 11.0 H, Eosinophils % 3.2, Basophils % 0.4, Absolute Granulocytes 1.5, Absolute Lymphocytes 1.6, Absolute Monocytes 0.4, Absolute Eosinophils 0.1, Absolute Basophils 0, PUBS MCHC 33.7 Microbiology 09/25 2101 URINE ROUT: Legionella Antigen - COMP 09/25 2101 URINE ROUT: Streptococcus pneumoniae Antigen (M - COMP 09/25 2101 URINE ROUT: Urine Culture - RES 09/25 1223 LOWER RESP: Respiratory Culture - CAN Cancelled: SPECIMEN NOT RECEIVED IN LABORATORY 09/25 122 LOWER RESP: Gram Stain - CAN Cancelled: SPECIMEN NOT RECEIVED IN LABORATORY 09/25 728 BLOOD: Blood Culture - RES 09/25 720 BLOOD: Blood Culture - RES Physical Exam General: Well-appearing, slim, NAD HEENT: NCAT, PERRLA, EOMI, clear nasal passages, no pharyngeal erythema Neck: supple, no carotid bruits, no goiter Cardiac: Normal S1S2, no mrg, 2+DP/TP, no lower leg edema Pulm: Good air movement, no wheezing or ronchi, normal chest expansion, normal AP diameter GI: Slightly distended but no fluid wave or hepatomegaly, no ttp, guarding, or rebound Neuro: 4/5 strength in all extremities, normal sensation throughout, limited visual chowdary on the right side Assessment/Plan Assessment: No o/n events reported: NSR 68-80, PVCs Modified barium swallow: No evidence of pathology Abd XR: No pathology found Assessment Pt is a 75 yo very pleasant white male with history of hypertension, 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 Swallow evaluation for concerns of aspiration turned out to be negative. Abd xr for concerns of diarrhea and distension was also negative. Pt's breathing appears to be responding well to abx and current course should be continued. Plan: #1 productive cough Improving on current abx treatment and sumederol. Sputum cultures pending. CXR shows significant abnormalities but little evidence of pneumonia. -continue azithomycin and ceftriaxone -continue solumedrol -PFT and pulmonology f/u on discharge #2 BPH -continue tamulosin and finesteride #3 hypertension BP has improved this morning 142/82 -continue lisinopril
--- NOTE | 2016-09-27 08:13 | PN- Housestaff ---
HERSON RODRIGUEZ,JANICE 09/27/16 0813: Subjective Follow-up For: Bronchiectasis exacerbation Right middle lobe collapse Subjective: Patient seen and examined. He is seen sitting upright in his chair at bedside resting comfortably. He appears to be in no acute distress. His is at bedside and is up to date about his clinical care. He reports feeling fine, but admits that he is feels weaker than usual after working with physical therapy. He is in agreement to be discharged to short term rehab. He otherwise denies headache, fever, chills, chest pain, shortness of breath, nausea, vomiting, diarrhea. Review of Systems Constitutional: Reports: see HPI. Objective Last 24 Hrs of Vital Signs/I&O Vital Signs Date Time Temp Pulse Resp B/P B/P Pulse O2 O2 Flow FiO2 Mean Ox Delivery Rate 09/27 1518 97.9 63 20 134/60 95 Room Air 09/27 0900 98.8 55 20 160/90 96 Room Air 09/27 0837 76 142/82 09/27 0837 76 142/82 09/27 0836 76 142/82 09/27 0026 98.0 76 20 142/82 96 Intake & Output 09/27 1600 09/27 0800 09/27 0000 Intake Total 400 40 520 Output Total 300 550 575 Balance 100 -510 -55 Intake, Oral 400 40 520 Number 2 0 Bowel Movements Output, Urine 300 550 575 Physical Exam General Appearance: Alert, Oriented X3, Cooperative, No Acute Distress Other Physical Findings: General- well developed, well nourished elderly man in no acute distress HEENT- NCAT, PERRL, EOMI, anicteric sclera, moist mucous membranes, nasal cannula in place Chest- S1, S2 w/o m/g/r Lung- Diminsihed airflow bilaterally w/o wheezing/rhonchi/crackles Abdomen- Soft, nontender, nondistended, bowel sounds intact Neuro- Awake and alert, mild stuttered speach, CN II - XII grossly intact Ext- normal pulses, no cyanosis/clubbing/edema Current Medications: Current Medications Sig/Cynthia Start time Last Medication Dose Route Stop Time Status Admin Acetaminophen 325 MG Q6 PRN 09/25 1115 AC PO Albuterol Sulfate 2 PUF Q4-6 PRN PRN 09/25 1345 AC INH Aspirin 81 MG DAILY 09/25 1346 AC 09/27 PO 0836 Atenolol 75 MG DAILY 09/26 1000 AC 09/27 PO 0837 Atorvastatin Calcium 40 MG 1700 09/25 1700 AC 09/27 PO 1719 Citalopram 20 MG DAILY 09/26 1000 AC 09/27 Hydrobromide PO 0836 Docusate Sodium 100 MG DAILY 09/26 1445 AC 09/27 PO 0836 Enoxaparin Sodium 40 MG DAILY 09/25 1100 AC 09/27 SC 0913 Finasteride 5 MG DAILY 09/25 1346 AC 09/27 PO 0837 Hydrochlorothiazide 25 MG DAILY 09/25 1347 AC 09/27 PO 0836 Lisinopril 40 MG DAILY 09/28 1000 AC PO Lisinopril 20 MG DAILY 09/26 1000 DC 09/27 PO 0837 Methotrexate 15 MG We 10/01 1400 AC PO Omeprazole 20 MG DAILY 09/25 1347 AC 09/27 PO 0838 Oxycodone HCl 5 MG Q6 PRN 09/25 1115 AC PO Oxycodone/ 2 TAB Q6 PRN 09/25 1115 AC Acetaminophen PO Polyethylene Glycol 17 GM DAILY 09/26 1446 AC 09/27 PO 0837 Prednisone 30 MG DAILY 09/28 1000 AC PO Prednisone 40 MG DAILY 09/27 1000 DC 09/27 PO 0837 Senna 187 MG AT BEDTIME 09/26 2200 AC 09/27 PO 2040 Tamsulosin HCl 0.4 MG DAILY 09/26 1000 AC 09/27 PO 0836 Tetrahydrozoline HCl 1 GTT Q8P PRN 09/26 1330 AC 09/27 OPH 0913 Last 24 Hrs of Lab/Reji Results Last 24 Hrs of Labs/Mics: Laboratory Tests 09/27/16 0610: CBC w Diff NO MAN DIFF REQ, RBC 3.75 L, MCV 101.1 H, MCH 34.2 H, RDW 14.5, MPV 9.4, Gran % 75.4 H, Lymphocytes % 17.7 L, Monocytes % 6.6, Eosinophils % 0.1, Basophils % 0.2, Absolute Granulocytes 9.9 H, Absolute Lymphocytes 2.3, Absolute Monocytes 0.9 H, Absolute Eosinophils 0, Absolute Basophils 0, PUBS MCHC 33.8 Assessment/Plan Assessment: Patient is currently not requiring any supplemental oxygen. He remains afebrile off of antibiotics. He appears to be clinically improving on the rapid oral steroid taper. PT evaluated the patient today and recommended short term rehabilitation. He remains constipated, but feels he may have a bowel movement soon. He is to be discharged to [facility] once a bed becomes available. Lisinopril was increased to 40mg; follow serum chemistries. Problem List: -Acute Bronchiectasis exacerbation -Constipation, now on bowel regimen -GERD, on omeprazole -Hypertension, on hydrochlorothiazide and lisinopril -Hyperlipidemia, on atorvastatin -BPH, on finasteride and flomax -Macular Degeneration -Normal Pressure Hydrocephalus -History of CVA Plan: -Telemetry -Follow off antibiotics -TRC with nebs -Rapid Prednisone taper -Obtain sputum culture if possible -Pulmonology consult, following -Cardiology consult, following -Bowel Regimen -DVT PPx with lovenox -FULL CODE Problem List: 1. Bronchiectasis Pain Ratin Pain Location: None Pain Goal: Remain pain free Pain Plan: See assessment Tomorrow's Labs & Rationales: YI SHIRLEY MD,AGUILA 09/27/16 1227: Attending MD Review Statement Attending Statement Attending MD Statement: examined this patient, discuss w/resident/PA/AIR PUMPER, agreed w/resident/PA/AIR PUMPER, discussed with family, reviewed EMR data (avail), discussed with nursing, discussed with case mgmt, reviewed images, amended to note Attending Assessment/Plan: 75-year-old male with past medical history significant for stroke, progressive neurological dysfunction secondary to normal pressure hydrocephalus, hypertension, hyperlipidemia, sarcoidosis has been admitted to the floor for shortness of breath. Patient was seen and examined on the bedside along with his sitting beside him. Patient reported that his breathing has improved but has been unable to get out of bed and walk around. At baseline he walks with a rolling walker. He is CT suggests evidence of fibrosis, bronchiectasis and airway narrowing which is chronic. CT scan does not show any evidence of CHF. 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 He has been afebrile with gradual increase in leukocytosis given use of steroids. He was cleared to take thin liquids via swallow eval. He takes methotrexate for his psoriasis. He needs to be evaluated by the physical therapy before dischargee as he is not out of bed yet.
[2016-09-27 08:23] LABS: ABSOLUTE BASOPHIL COUNT 0 /CUMM (0.0-0.2); ABSOLUTE EOSINOPHIL COUNT 0 /CUMM (0.0-0.7); ABSOLUTE GRANULOCYTE CT 9.9 /CUMM (1.4-6.5); ABSOLUTE LYMPH COUNT 2.3 /CUMM (1.2-3.4); ABSOLUTE MONOCYTE COUNT 0.9 /CUMM (0.10-0.60); BASOPHIL % 0.2 % (0.0-2.0); EOSINOPHIL % 0.1 % (0-5); GRANULOCYTE % 75.4 % (42.2-75.2); HEMATOCRIT 37.9 % (42-52); MEAN CORPUSCULAR HGB 34.2 PG (27.0-31.0); MEAN CORPUSCULAR HGB CONC 33.8 G/DL (33.0-37.0); MEAN CORPUSCULAR VOLUME 101.1 FL (80.0-94.0); MEAN PLATELET VOLUME 9.4 FL (7.4-10.4); PLATELET COUNT 167 /CUMM (130-400); RBC DISTRIBUTION WIDTH 14.5 % (11.5-14.5); RED BLOOD CELL CT 3.75 /CUMM (4.70-6.10); WHITE BLOOD CELL COUNT 13.1 /CUMM (4.8-10.8)
[2016-09-27 09:00] VITALS: BP 160/90
--- NOTE | 2016-09-27 09:52 | PN- Pulmonary ---
Subjective HPI/Critical Care Issues: Patient's feels well comfortable on room air cough is improved swallowing eval did not show evidence of aspiration Objective Current Medications: Current Medications Sig/Cynthia Start time Last Medication Dose Route Stop Time Status Admin Acetaminophen 325 MG Q6 PRN 09/25 1115 AC PO Albuterol Sulfate 2 PUF Q4-6 PRN PRN 09/25 1345 AC INH Artificial Tears 2 GTT TID 09/26 1600 CAN OPH Aspirin 81 MG DAILY 09/25 1346 AC 09/27 PO 0836 Atenolol 75 MG DAILY 09/26 1000 AC 09/27 PO 0837 Atorvastatin Calcium 40 MG 1700 09/25 1700 AC 09/26 PO 1631 Azithromycin 500 MG Q24H 09/26 08 DC 09/26 Sodium Chloride 250 ML IV 0817 Ceftriaxone Sodium 1,000 MG Q24H 09/26 0800 DC 09/26 IV 0817 Citalopram 20 MG DAILY 09/26 1000 AC 09/27 Hydrobromide PO 0836 Docusate Sodium 100 MG DAILY 09/26 1445 AC 09/27 PO 0836 Enoxaparin Sodium 40 MG DAILY 09/25 1100 AC 09/27 SC 0913 Finasteride 5 MG DAILY 09/25 1346 AC 09/27 PO 0837 Hydrochlorothiazide 25 MG DAILY 09/25 1347 AC 09/27 PO 0836 Lisinopril 20 MG DAILY 09/26 1000 AC 09/27 PO 0837 Methotrexate 15 MG We 10/01 1400 AC PO Methylprednisolone 40 MG Q8 09/26 1400 DC IV Methylprednisolone 40 MG Q8 09/26 0800 DC 09/26 IV 1443 Omeprazole 20 MG DAILY 09/25 1347 AC 09/27 PO 0838 Oxycodone HCl 5 MG Q6 PRN 09/25 1115 AC PO Oxycodone/ 2 TAB Q6 PRN 09/25 1115 AC Acetaminophen PO Patient Medication 1 ED .STK-MED ONE 09/26 1432 DC Teaching ED 09/26 1433 Polyethylene Glycol 17 GM DAILY 09/26 1446 AC 09/27 PO 0837 Potassium Chloride 20 MEQ ONCE ONE 09/26 1600 DC 09/26 PO 09/26 1601 1817 Prednisone 40 MG DAILY 09/27 1000 AC 09/27 PO 0837 Senna 187 MG AT BEDTIME 09/26 2200 AC 09/26 PO 1632 Tamsulosin HCl 0.4 MG DAILY 09/26 1000 AC 09/27 PO 0836 Tetrahydrozoline HCl 1 GTT Q6 09/26 1334 DC OPH Tetrahydrozoline HCl 1 GTT Q8P PRN 09/26 1330 AC 09/27 OPH 0913 Vital Signs & I&O Last 24 Hrs of Vitals and I&O: Vital Signs Date Time Temp Pulse Resp B/P B/P Pulse O2 O2 Flow FiO2 Mean Ox Delivery Rate 09/27 899 98.8 55 20 160/90 96 Room Air 09/27 0837 76 142/82 09/27 0837 76 142/82 09/27 0836 76 142/82 09/27 0026 98.0 76 20 142/82 96 09/26 1934 95 Room Air 09/26 1600 Nasal 1.0L Cannula 09/26 1530 98.5 72 16 138/78 95 Nasal 1.0L Cannula 09/26 1355 Nasal 1.0L Cannula 09/26 1000 98.1 84 20 188/90 98 Nasal 2.0L Cannula Intake & Output 09/27 1600 09/27 0800 09/27 0000 Intake Total 40 520 Output Total 550 575 Balance -510 -55 Intake, Oral 40 520 Number 0 Bowel Movements Output, Urine 550 575 Her oxygen saturation 96% exam. Shows clear lung chowdary are no wheezes cardiac exam shows regular S1 and S2 without murmurs Impression/Plan Impression/Plan Impression/Plan: 75-year-old gentleman admitted with shortness of breath and cough with a month's duration his CAT scan suggests evidence of fibrosis traction bronchiectasis and airway narrowing all of which appears chronic. Family reports distant history of sarcoidosis. Symptoms appear improved Recommendations: Follow-up Sputum C&S. Rapidly taper steroid.
--- NOTE | 2016-09-27 12:44 | PN- Cardiology ---
Subjective Subjective: * Breathing is improved and cough has resolved. * potassium is 3.7 * sinus rhythm Objective Vital Signs and I&Os Vital Signs Date Time Temp Pulse Resp B/P B/P Pulse O2 O2 Flow FiO2 Mean Ox Delivery Rate 09/27 899 98.8 55 20 160/90 96 Room Air 09/27 0837 76 142/82 09/27 0837 76 142/82 09/27 0836 76 142/82 09/27 0026 98.0 76 20 142/82 96 09/26 1934 95 Room Air 09/26 1600 Nasal 1.0L Cannula 09/26 1530 98.5 72 16 138/78 95 Nasal 1.0L Cannula 09/26 1355 Nasal 1.0L Cannula Intake & Output 09/27 1600 09/27 0800 09/27 0000 09/26 1600 09/26 0800 09/26 0000 Intake Total 40 520 400 200 400 Output Total 550 575 422 232 5901 Balance -510 -55 300 -175 -600 Intake, Oral 40 520 400 200 400 Number 0 Bowel Movements Output, Urine 550 575 016 520 1288 Patient 160 lb Weight Weight Reported by Patient Measurement Method Physical Exam: General: WD/ WN male in NAD;alert and oriented Neck: no JVD Heart: RRR w/o murmur Lungs: clear bilaterally Extremities: no edema Assessment/Plan Assessment/Plan * Doing well from a cardiac standpoint without evidence of decompensated right or left heart failure. * Blood pressure is elevated. Increase Lisinopril to 40mg daily. Follow BUN, creatinine and potassium. Continue telemetry? Yes
[2016-09-27 15:18] VITALS: BP 134/60
[2016-09-28 01:04] VITALS: BP 130/90
--- NOTE | 2016-09-28 07:12 | PN- Housestaff ---
FERN RODRIGUEZ,[facility] 09/28/16 0712: Subjective Follow-up For: Bronchiectasis exacerbation Right middle lobe collapse Subjective: Patient seen and examined. He was lying in bed comfortably. He appears to be in no acute distress, denies headache, fever, chills, chest pain, shortness of breath, nausea, vomiting, diarrhea. He is willing to be discharged to short-term rehabilitation once stabilized. Review of Systems Constitutional: Reports: see HPI. Objective Last 24 Hrs of Vital Signs/I&O Vital Signs Date Time Temp Pulse Resp B/P B/P Pulse O2 O2 Flow FiO2 Mean Ox Delivery Rate 09/28 0104 97.8 69 20 130/90 94 Room Air 09/28 0000 Room Air 09/27 1518 97.9 63 20 134/60 95 Room Air 09/27 0900 98.8 55 20 160/90 96 Room Air 09/27 0837 76 142/82 09/27 0837 76 142/82 09/27 0836 76 142/82 Intake & Output 09/28 0800 09/28 0000 09/27 1600 Intake Total 400 300 400 Output Total 300 Balance 400 300 100 Intake, Oral 400 300 400 Number 2 Bowel Movements Output, Urine 300 Physical Exam General Appearance: Alert, Oriented X3, Cooperative, No Acute Distress Cardiovascular: Regular Rate, Normal S1, Normal S2, No Murmurs Lungs: Diminsihed airflow bilaterally w/o wheezing/rhonchi/crackles Abdomen: Normal Bowel Sounds, Soft, No Tenderness Extremities: No Clubbing, No Cyanosis, No Edema, Normal Pulses Current Medications: Current Medications Sig/Cynthia Start time Last Medication Dose Route Stop Time Status Admin Acetaminophen 325 MG Q6 PRN 09/25 1115 AC PO Albuterol Sulfate 2 PUF Q4-6 PRN PRN 09/25 1345 AC 09/27 INH 2247 Aspirin 81 MG DAILY 09/25 1346 AC 09/27 PO 0836 Atenolol 75 MG DAILY 09/26 1000 AC 09/27 PO 0837 Atorvastatin Calcium 40 MG 1700 09/25 1700 AC 09/27 PO 1719 Citalopram 20 MG DAILY 09/26 1000 AC 09/27 Hydrobromide PO 0836 Docusate Sodium 100 MG DAILY 09/26 1445 AC 09/27 PO 0836 Enoxaparin Sodium 40 MG DAILY 09/25 1100 AC 09/27 SC 0913 Finasteride 5 MG DAILY 09/25 1346 AC 09/27 PO 0837 Hydrochlorothiazide 25 MG DAILY 09/25 1347 AC 09/27 PO 0836 Lisinopril 40 MG DAILY 09/28 1000 AC PO Lisinopril 20 MG DAILY 09/26 1000 DC 09/27 PO 0837 Methotrexate 15 MG We 10/01 1400 AC PO Omeprazole 20 MG DAILY 09/25 1347 AC 09/27 PO 0838 Oxycodone HCl 5 MG Q6 PRN 09/25 1115 AC PO Oxycodone/ 2 TAB Q6 PRN 09/25 1115 AC Acetaminophen PO Polyethylene Glycol 17 GM DAILY 09/26 1446 AC 09/27 PO 0837 Prednisone 30 MG DAILY 09/28 1000 AC PO Prednisone 40 MG DAILY 09/27 1000 DC 09/27 PO 0837 Senna 187 MG AT BEDTIME 09/26 2200 AC 09/27 PO 2040 Tamsulosin HCl 0.4 MG DAILY 09/26 1000 AC 09/27 PO 0836 Tetrahydrozoline HCl 1 GTT Q8P PRN 09/26 1330 AC 09/27 OPH 0913 Last 24 Hrs of Lab/Reji Results Last 24 Hrs of Labs/Mics: Laboratory Tests 09/28/16 0605: Sodium Pending, Potassium Pending, Chloride Pending, Carbon Dioxide Pending, Anion Gap Pending, BUN Pending, Creatinine Pending, BUN/Creatinine Ratio Pending Assessment/Plan Assessment: Patient is currently not requiring any supplemental oxygen. He remains afebrile off of antibiotics. He appears to be clinically improving on the rapid oral steroid taper. PT evaluated the patient today and recommended short term rehabilitation. He remains constipated, but feels he may have a bowel movement soon. He is to be discharged to [facility] once a bed becomes available. Lisinopril was increased to 40mg; follow serum chemistries. Problem List: -Acute Bronchiectasis exacerbation -Constipation, now on bowel regimen -GERD, on omeprazole -Hypertension, on hydrochlorothiazide and lisinopril -Hyperlipidemia, on atorvastatin -BPH, on finasteride and flomax -Macular Degeneration -Normal Pressure Hydrocephalus -History of CVA Plan: -Telemetry -Follow off antibiotics -TRC with nebs -Rapid Prednisone taper -Obtain sputum culture if possible -Pulmonology consult, following -Cardiology consult, following -Bowel Regimen -DVT PPx with lovenox -FULL CODE Problem List: 1. Bronchiectasis Pain Ratin Pain Location: None Pain Goal: Remain pain free Pain Plan: Mild pain pathway Tomorrow's Labs & Rationales: YI SHIRLEY MD,AGUILA 09/28/16 1251: Attending MD Review Statement Attending Statement Attending MD Statement: examined this patient, discuss w/resident/PA/CONTINUUM OF CARE MANAGER, agreed w/resident/PA/CONTINUUM OF CARE MANAGER, discussed with family, reviewed EMR data (avail), discussed with nursing, discussed with case mgmt, reviewed images, amended to note Attending Assessment/Plan: 75-year-old male with past medical history significant for stroke, progressive neurological dysfunction secondary to normal pressure hydrocephalus, hypertension, hyperlipidemia, sarcoidosis has been admitted to the floor for shortness of breath. Patient was seen and examined on the bedside along with his sitting beside him. Patient reported that his breathing has improved and the physical therapy has worked with him but he was unable to get out of bed. At baseline he walks with a rolling walker. He is CT suggests evidence of fibrosis, bronchiectasis and airway narrowing which is chronic. CT scan does not show any evidence of CHF. 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 will keep off of antibiotics and taper steroids on discharge. He has been afebrile with gradual increase in leukocytosis given use of steroids. He was cleared to take thin liquids via swallow eval. He takes methotrexate for his psoriasis. The physical therapist has recommended short- term rehabilitation. His dose of lisinopril was increased yesterday to 40 mg given his elevated blood pressure. Continues to have elevated blood pressure this morning. We will follow the recommendations from the nutrition technician. His reported that his blood pressure has been stable for a long time on this dose of lisinopril. The PT has recommended short-term rehabilitation and the patient is interested in taking her to [facility] or [facility] in [place].
[2016-09-28 08:02] VITALS: BP 183/99
--- NOTE | 2016-09-28 09:55 | PN- Pulmonary ---
Subjective HPI/Critical Care Issues: Patient feels well without shortness of breath Objective Current Medications: Current Medications Sig/Cynthia Start time Last Medication Dose Route Stop Time Status Admin Acetaminophen 325 MG Q6 PRN 09/25 1115 AC PO Albuterol Sulfate 2 PUF Q4-6 PRN PRN 09/25 1345 AC 09/27 INH 2247 Aspirin 81 MG DAILY 09/25 1346 AC 09/28 PO 0928 Atenolol 75 MG DAILY 09/26 1000 AC 09/28 PO 0930 Atorvastatin Calcium 40 MG 1700 09/25 1700 AC 09/27 PO 1719 Citalopram 20 MG DAILY 09/26 1000 AC 09/28 Hydrobromide PO 0928 Docusate Sodium 100 MG DAILY 09/26 1445 AC 09/28 PO 0928 Enoxaparin Sodium 40 MG DAILY 09/25 1100 AC 09/28 SC 0927 Finasteride 5 MG DAILY 09/25 1346 AC 09/28 PO 0930 Hydrochlorothiazide 25 MG DAILY 09/25 1347 AC 09/28 PO 0929 Lisinopril 40 MG DAILY 09/28 1000 AC 09/28 PO 0929 Lisinopril 20 MG DAILY 09/26 1000 DC 09/27 PO 0837 Methotrexate 15 MG We 10/01 1400 DC PO Methotrexate 15 MG [place]@1000 09/28 1000 AC 09/28 PO 0947 Omeprazole 20 MG DAILY 09/25 1347 AC 09/28 PO 0929 Oxycodone HCl 5 MG Q6 PRN 09/25 1115 AC PO Oxycodone/ 2 TAB Q6 PRN 09/25 1115 AC Acetaminophen PO Polyethylene Glycol 17 GM DAILY 09/26 1446 AC 09/28 PO 0948 Potassium Chloride 60 MEQ ONCE ONE 09/28 929 DC 09/28 PO 09/28 0931 0946 Prednisone 30 MG DAILY 09/28 1000 AC 09/28 PO 0929 Prednisone 40 MG DAILY 09/27 1000 DC 09/27 PO 0837 Senna 187 MG AT BEDTIME 09/26 2200 AC 09/27 PO 2040 Tamsulosin HCl 0.4 MG DAILY 09/26 1000 AC 09/28 PO 0928 Tetrahydrozoline HCl 1 GTT Q8P PRN 09/26 1330 AC 09/27 OPH 0913 Vital Signs & I&O Last 24 Hrs of Vitals and I&O: Vital Signs Date Time Temp Pulse Resp B/P B/P Pulse O2 O2 Flow FiO2 Mean Ox Delivery Rate 09/28 0930 180/80 09/28 0929 180/80 09/28 0928 180/80 09/28 0802 98.8 64 17 183/99 95 Room Air 09/28 0104 97.8 69 20 130/90 94 Room Air 09/28 0000 Room Air 09/27 1518 97.9 63 20 134/60 95 Room Air Intake & Output 09/28 1600 09/28 0800 09/28 0000 Intake Total 400 300 Output Total Balance 400 300 Intake, Oral 400 300 Room air oxygen saturation 95% exam of his chest shows clear lung chowdary cardiac exam shows regular S1 and S2 without murmurs Impression/Plan Impression/Plan Impression/Plan: 75-year-old gentleman admitted with shortness of breath and cough with a month's duration his CAT scan suggests evidence of fibrosis traction bronchiectasis and airway narrowing all of which appears chronic. Family reports distant history of sarcoidosis. Symptoms appear improved. Recommendations: Follow-up Sputum C&S. Rapidly taper steroid.. Assess ambulatory oxygen saturations
--- NOTE | 2016-09-28 12:59 | PN- Cardiology ---
Subjective Subjective: * Breathing is improved and cough has resolved. * potassium is 3.1 * sinus rhythm * Blood pressure remains elevated Objective Vital Signs and I&Os Vital Signs Date Time Temp Pulse Resp B/P B/P Pulse O2 O2 Flow FiO2 Mean Ox Delivery Rate 09/28 0830 180/80 09/28 928 180/80 09/29 927 180/80 09/28 0802 98.8 64 17 183/99 95 Room Air 09/28 0104 97.8 69 20 130/90 94 Room Air 09/28 0000 Room Air 09/27 1518 97.9 63 20 134/60 95 Room Air Intake & Output 09/28 1600 09/28 0800 09/28 0000 09/27 1600 09/27 0800 09/27 0000 Intake Total 400 300 400 40 520 Output Total 300 550 575 Balance 400 300 100 -510 -55 Intake, Oral 400 300 400 40 520 Number 2 0 Bowel Movements Output, Urine 300 550 575 Physical Exam: General: WD/ WN male in NAD;alert and oriented Neck: no JVD Heart: RRR w/o murmur Lungs: clear bilaterally Extremities: no edema Assessment/Plan Assessment/Plan * Doing well from a cardiac standpoint without evidence of decompensated right or left heart failure. * Blood pressure is elevated. Increase Lisinopril to 40mg BID. Follow BUN, creatinine and potassium. * Replete potassium to 4-4.5. Continue telemetry? Yes
[2016-09-28 16:22] VITALS: BP 168/84
--- NOTE | 2016-09-28 16:36 | Discharge Summary ---
Visit Information Visit Dates Admission Date: 09/25/16 Discharge Date: 09/29/16 Hospital Course Course Attending Physician: SARAH KUHN M.D Primary Care Physician: AHMET RODRIGUEZ,HAI [place] Consulting Request: 1 Consulting Specialty: Cardiology Consulting Request: 2 Consulting Specialty: Pulmonary Disease Hospital Course: 75-year-old male with past medical history of hypertension, CVA, hyperlipidemia, GERD, macular degeneration, BPH, normal pressure hydrocephalus( gait and urinary problems) presented to the ED with a chief complaint of worsening shortness of breath for the past 1 month. Vitals on admission, afebrile, pulse 62, respiration 20, blood pressure 172/86, saturating 99% on 6 L aerosol mask. On physical exam he was alert and oriented x3, cooperative and in mild distress. HEENT revealed PERRLA, EOMI, moist mucous membranes. Neck was supple, no elevated JVP. Cardiovascular exam pertinent for normal S1, S2, no murmers, rubs, gallops appreciated. Respiratory exam was unremarkable, with CTAB. Abdominal exam was benign with abdomen soft, non-tender, non-distedned, with normal bowel sounds heard in all four quadrants. Examination of the lower extremities showed no edema. Neuro exam was grossly unremarkable. Labs showed white count 3.7, H&H 14/40 1.5, MCV 100.2, sodium 141, potassium 2.7 , BUN 14, creatinine 0.9, normal LFTs, troponin 0.01 EKG: NSR, HR: 64 with frequent PVCs, Left anterior fascicular block, LVH Chest x-ray:Central vascular congestion and mild right perihilar and left suprahilar airspace opacities that may reflect early edema versus pneumonia. Patient received IV Solumedrol 125 mg, IV ceftriaxone and azithromycin and 20 KCl in the ED. He was admitted to telemetry and the following problems were addressed: #Acute hypoxic respiratory failure This was initially thought to be secondary to COPD exacerbation vs CHF exacerbation. Cardiology was consulted given elevated BNP, however, did not deem it to be 2/2 CHF exacerbation. His trops x3 remained negative, and Echo showed good LVEF, with no RWMA. Pulmonary was also consulted and he was staeted on a fast steroid taper after CT chest showed findings c/w bronchiectasis and collapse of R middle lobe. A swallow eval was done for concern of aspiration PNA , which was normal. Patient remained afebrile and Abx were discontinued. He was evaluated by PT who recommended discharge to [facility] [place]. #Hypertension - He was continued on HCTZ 25mg daily, Atenolol increased to 100mg daily, Lisinopril increased to 40mg daily, and Amlodipine 2.5mg daily was added to his regimen. # BPH - He was continued on Flomax 0.4mg daily. #Psoriasis - He was continued on Methotrexate #Depression - He was contineud on Citalopram 20mg daily. Allergies: Coded Allergies: donepezil (From ARICEPT) (Intermediate, VOMITTING 09/25/16) red dye (ONCE 09/25/16) Significant Procedures: SERVICE DATE: 09/25/16 EXAM TYPE: RAD - XRY-PORTABLE CHEST XRAY FINDINGS: Low lung volumes. There is no pleural effusion or pneumothorax. Cardiac silhouette size is within normal limits. There is central vascular congestion and there are right perihilar and left suprahilar airspace opacities. No acute osseous findings. Bowel gas beneath the right hemidiaphragm. IMPRESSION: Central vascular congestion and mild right perihilar and left suprahilar airspace opacities that may reflect early edema versus pneumonia in the appropriate clinical context. SERVICE DATE: 09/25/16-121 EXAM TYPE: CARD - ECHOCARDIOGRAM FINDINGS Left Ventricle Normal size left ventricle. Mild to moderate concentric left ventricular hypertrophy. Normal left ventricular ejection fraction visually estimated at >65 %. No obvious regional wall motion abnormalities. However there is mild uncoordination of left ventricular contractility.abnormal relaxation filling pattern of the left ventricle for age (stage 1 diastolic dysfunction). Right Ventricle The right ventricle is normal in size and function. Right Atrium The right atrium is normal in size. Left Atrium Mild left atrial dilatation. Mitral Valve Mild thickening/calcification of the mitral valve leaflets. Mild mitral annular calcification. Mild mitral regurgitation. Aortic Valve Focal thickening of the aortic valve cusps. No aortic stenosis. Trace to mild aortic regurgitation. Tricuspid Valve Structurally normal tricuspid valve. No tricuspid regurgitation. Unable to estimate the right ventricular systolic pressure. Pulmonic Valve Pulmonic valve not well visualized, grossly normal. Trace pulmonic regurgitation. Pericardium There is a small nonhemodynamically significant pericardial effusion seen No pleural effusion. Great Vessels Normal aortic root dimension. The aortic arch and great vessels are well seen and are normal. CONCLUSIONS Mild to moderate concentric left ventricular hypertrophy. Normal left ventricular ejection fraction visually estimated at >65 No obvious regional wall motion abnormalities. However there is mild uncoordination of left ventricular contractility. Mild left atrial dilatation. Mild thickening/calcification of the mitral valve leaflets. Mild mitral annular calcification. Mild mitral regurgitation. Focal thickening of the aortic valve cusps. No aortic stenosis. Trace to mild aortic regurgitation. Unable to estimate the right ventricular systolic pressure. There is a small nonhemodynamically significant pericardial effusion seen. No pleural effusion. Kai Tillman M.D. (Electronically Signed) Final Date: 26 September 2016 09:14 SERVICE DATE: 09/25/16 EXAM TYPE: CAT - CT CHEST WO IV CONTRAST FINDINGS: LUNGS AND PLEURA: There are fan-shaped regions of symmetric appearing peribronchial fibrosis, traction bronchiectasis and architectural distortion in the posterior, suprahilar regions of each upper lobe. There is mild luminal narrowing of the right mainstem bronchus. There is a stricture of the proximal right middle lobe bronchus with subtotal collapse of the right middle lobe. Also, there is wall thickening and luminal narrowing of segmental bronchi of the right lower lobe. However, no evidence of an endobronchial mass. A thin strand of mucus is seen in the lumen of the trachea. 0.3 cm calcified granuloma is present in the medial right lower lobe (image 277, series 4). 0.2 cm nodule in the superior segment right lower lobe might be calcified (image 171, series 4). There is a small, 0.2 cm noncalcified nodule in the lateral segment of the left lower lobe (image 299, series 4). There are some scattered linear opacities of scarring in the lung bases. No pulmonary consolidation or pleural effusion. MEDIASTINUM: The heart size is normal. Atherosclerotic calcification of coronary arteries, most severely affecting the left anterior descending coronary artery. There is calcific atherosclerosis of the thoracic aorta without aortic aneurysm. No pericardial effusion. The esophagus is mildly distended and without focal wall thickening. Thyroid gland is slightly heterogeneous and 0.4 cm calcified nodule is present in the left thyroid lobe. LYMPHATICS: No pathologic sized axillary, hilar or mediastinal lymph nodes. UPPER ABDOMEN: There is interposition of the hepatic flexure of the colon between the liver and right diaphragm. Adrenal glands are normal. Prominent stool within the colon suggests possibility of constipation. OSSEOUS STRUCTURES: No focal, suspicious lesions within the degenerated spine. There is skeletal hyperostosis with enthesophyte formation along spinous processes, posteriorly, and along the anterior spine. IMPRESSION: 1. No evidence of acute pneumonia, pleural effusion or lymphadenopathy. 2. Perihilar upper lobe predominant fibrosis, traction bronchiectasis and architectural distortion. These findings could be sequela of remote infectious disease, although differential diagnosis may include pneumoconiosis or sarcoidosis. 3. There is bronchial wall thickening and bronchial stenosis in the right lung, most severely affecting the proximal middle lobe bronchus, with subtotal collapse of the right middle lobe. 4. Calcific atherosclerosis of coronary arteries and thoracic aorta without aortic aneurysm. SERVICE DATE: 09/26/16- EXAM TYPE: RAD - [id number] VIEWS FINDINGS: Nonobstructive bowel gas pattern with mild gaseous distention of small and large bowel loops. Fair amount of stool seen throughout the colon, most concentrated in the ascending colon and rectosigmoid colon. No abnormal air-fluid levels or evidence of free air on upright view. S-shaped thoracolumbar scoliosis with multilevel degenerative changes in the spine seen. Phleboliths seen in the left lower pelvis. Arterial vascular calcifications seen in the groins bilaterally. IMPRESSION: No evidence of bowel obstruction or perforation. Large amount of fecal material in the colon suggests constipation. Clinical correlation requested. SERVICE DATE: 09/26/16- EXAM TYPE: RAD - XRY-MODIFIED BARIUM SWALLOW FINDINGS: Patient demonstrated good oral bolus formation. There was a delay in swallow trigger mechanism with spillage of fluid into the vallecula throughout the study, and also into the piriform sinuses with nectar consistency. There was good contraction and elevation of the soft palate with no evidence of nasopharyngeal reflux. There was good anterior-superior excursion of the laryngeal-hyoid complex with good posterior-inferior tipping of the epiglottis. Mild residual material was seen in the valleculae, piriform sinuses, and posterior pharyngeal wall with thin liquids; this subsequently cleared with cued additional swallow. Prominent cricopharyngeus muscle is noted. No penetration or aspiration was observed throughout the study. FLUOROSCOPY TIME: 2 minutes NUMBER OF IMAGES: 18 series IMPRESSION: No penetration or aspiration was observed. Please see speech pathology report for specific diet recommendations. Disposition Summary Disposition Principal Diagnosis: Bronchiectasis Abnormal EKG; negative troponins. Additional Diagnosis: HTN Hx. of CVA GERD Macular degeneration HLP Normal pressure hydrocephalus BPH Psoriasis Discharge Disposition: SNF Discharge Instructions General Discharge Information Code Status: Full Code Patient's Diet: Heart Healthy Patient's Activity: As tolerated Follow-Up Instructions/Appts: Please follow up with your primary care physician in one week. Please follow up with your hospital admissions officer in one week. Please follow up with your mechanical developer prover in one week. Please do a repeat BEP by the end of this week on 10/03/16 to check his serum potassium. Medications at Discharge Discharge Medications: Stop taking the following medications: Lisinopril (Lisinopril) 20 MG TABLET ORAL DAILY Qty = 90 Doxycycline Hyclate (Doxycycline Hyclate) 100 MG CAPSULE ORAL TWICE DAILY Qty = 14 Atenolol (Atenolol) 50 MG TABLET ORAL DAILY Qty = 135 Continue taking these medications: Citalopram Hydrobromide (Citalopram HBr) 20 MG TABLET 1 Tablet ORAL DAILY Qty = 90 Simvastatin (Simvastatin*) 80 MG TABLET 0.5 Tablet ORAL DAILY Qty = 45 Albuterol Sulfate (Proair Hfa) 90 MCG HFA.AER.AD 2 Puff Inhale through mouth EVERY 4-6 HOURS NEEDED as needed for SOB Qty = 9 Comments: Last Taken:09/27/16 Time: Finasteride (Finasteride) 5 MG TABLET 1 Tablet ORAL DAILY Qty = 90 Hydrochlorothiazide (Hydrochlorothiazide) 25 MG TABLET 1 Tablet ORAL DAILY Qty = 90 Tamsulosin HCl (Tamsulosin HCl) 0.4 MG CAP.ER.24H 1 Capsule ORAL DAILY Qty = 180 Omeprazole (Omeprazole) 20 MG CAPSULE.DR 1 Capsule ORAL DAILY Qty = 90 Methotrexate (Methotrexate) 2.5 MG TABLET 6 Tablet ORAL Once a Week Qty = 78 Aspirin (Aspirin*) 81 MG TAB.CHEW 1 Tablet ORAL DAILY Folic Acid (Folic Acid) 1 MG TABLET 1 Tablet ORAL DAILY Multiple Vitamin (Multivitamins) 1 EACH TABLET 1 Tablet ORAL DAILY Cyanocobalamin (Vitamin B-12) (Vitamin B12) 5,000 MCG TAB.RAPDIS 1,000 Microgram ORAL DAILY Start taking the following new medications: Atenolol (Atenolol) 100 MG TABLET 1 Tablet ORAL DAILY Qty = 30 No Refills Lisinopril (Lisinopril) 40 MG TABLET 1 Tablet ORAL DAILY Qty = 30 No Refills Amlodipine (Norvasc) 2.5 MG TABLET 2.5 Milligram ORAL DAILY Qty = 30 No Refills Prednisone (Prednisone) 10 MG TABLET 1 Tablet ORAL DAILY Qty = 1 No Refills Instructions: TAKE THIS TABLET ON 09/30/16 Potassium Chloride (Potassium Chloride) 20 MEQ TAB.ER.PRT 1 Tablet ORAL DAILY Qty = 7 No Refills Copies To: AHMET RODRIGUEZ,HAI [place]; BRONSON RODRIGUEZ,KAI Evans; LO RODRIGUEZ,KAI Gillespie Attending MD Review Statement Documenting Attending: SARAH KUHN M.D Other Findings: I have reviewed the discharge summary.
[2016-09-28 23:36] VITALS: BP 154/90
--- NOTE | 2016-09-29 07:07 | PN- Housestaff ---
HERSON RODRIGUEZ,JANICE 09/29/16 0707: Subjective Follow-up For: Bronchiectasis exacerbation Right middle lobe collapse Subjective: Patient seen and examined. He is seen sitting upright in his chair at bedside. He appears to be in no acute distress. At his bedside is his . He reports a persistent productive cough of clear sputum, but otherwise denies any new subjective complaints. Otherwise he denies any fever, chills, chest pain, palpitations, shortness of breath, nausea, vomiting, diarrhea. Review of Systems Constitutional: Reports: see HPI. Objective Last 24 Hrs of Vital Signs/I&O Vital Signs Date Time Temp Pulse Resp B/P B/P Pulse O2 O2 Flow FiO2 Mean Ox Delivery Rate 09/29 1316 73 169/83 09/29 0924 63 169/83 09/29 0921 63 169/83 09/29 0921 63 169/83 09/29 0904 98.3 63 18 169/83 91 Room Air 09/29 0816 Room Air 1.0L 09/29 0805 Room Air 1.0L 09/28 2336 97.9 74 16 154/90 95 Room Air 09/28 2206 68 160/100 Intake & Output 09/29 1600 09/29 0800 09/29 0000 Intake Total 100 Output Total Balance 100 Intake, Oral 100 Physical Exam General Appearance: Alert, Oriented X3, Cooperative, No Acute Distress Other Physical Findings: General- well developed, well nourished elderly man in no acute distress HEENT- NCAT, PERRL, EOMI, anicteric sclera, moist mucous membranes Chest- S1, S2 w/o m/g/r Lung- CTA bilaterally w/o wheezing/rhonchi/crackles Abdomen- Soft, nontender, nondistended, bowel sounds intact Neuro- Awake and alert, mild stuttered speach, CN II - XII grossly intact Ext- normal pulses, no cyanosis/clubbing/edema Current Medications: Current Medications Sig/Cynthia Start time Last Medication Dose Route Stop Time Status Admin Acetaminophen 325 MG Q6 PRN 09/25 1115 DCD PO Albuterol Sulfate 2 PUF Q4-6 PRN PRN 09/25 1345 DCD 09/27 INH 2247 Amlodipine Besylate 2.5 MG DAILY 09/29 1110 DCD 09/29 PO 1316 Aspirin 81 MG DAILY 09/25 1346 DCD 09/29 PO 0923 Atenolol 100 MG DAILY 09/30 1000 DCD PO Atenolol 75 MG DAILY 09/26 1000 DC 09/29 PO 0921 Atorvastatin Calcium 40 MG 1700 09/25 1700 DCD 09/28 PO 1533 Citalopram 20 MG DAILY 09/26 1000 DCD 09/29 Hydrobromide PO 0927 Docusate Sodium 100 MG DAILY 09/26 1445 DCD 09/29 PO 0920 Enoxaparin Sodium 40 MG DAILY 09/25 1100 DCD 09/29 SC 0919 Finasteride 5 MG DAILY 09/25 1346 DCD 09/29 PO 0923 Folic Acid 1 MG DAILY 09/29 1000 DCD 09/29 PO 0926 Hydrochlorothiazide 25 MG DAILY 09/25 1347 DCD 09/29 PO 0924 Lisinopril 40 MG DAILY 09/30 1000 DCD PO Lisinopril 40 MG BID 09/28 2200 DC 09/29 PO 0924 Methotrexate 15 MG We 10/01 1400 DC PO Methotrexate 5 MG ONCE ONE 09/280 DC 09/28 PO 09/28 2201 2207 Omeprazole 20 MG DAILY 09/25 1347 DCD 09/29 PO 0920 Oxycodone HCl 5 MG Q6 PRN 09/25 1115 DCD 09/28 PO 2214 Oxycodone/ 2 TAB Q6 PRN 09/25 1115 DCD Acetaminophen PO Polyethylene Glycol 17 GM DAILY 09/26 1446 DCD 09/29 PO 0932 Potassium Chloride 40 MEQ ONCE ONE 09/29 0830 DC 09/29 PO 09/29 0931 0939 Potassium Chloride 20 MEQ ONCE ONE 09/29 0930 DC 09/29 PO 09/29 0931 0939 Prednisone 20 MG DAILY 09/29 1000 DCD 09/29 PO 0925 Prednisone 30 MG DAILY 09/28 1000 DC 09/28 PO 0929 Senna 187 MG AT BEDTIME 09/26 2200 DCD 09/28 PO 2204 Tamsulosin HCl 0.4 MG DAILY 09/26 1000 DCD 09/29 PO 0921 Tetrahydrozoline HCl 1 GTT Q8P PRN 09/26 1330 DCD 09/29 OPH 0920 Last 24 Hrs of Lab/Reji Results Last 24 Hrs of Labs/Mics: Laboratory Tests 09/29/16 0650: Anion Gap 8, Estimated GFR > 60, BUN/Creatinine Ratio 24.4 Assessment/Plan Assessment: Patient continues to do well on the oral prednisone taper and is no longer requiring supplemental oxygen. He is to be discharged to short term rehabiliation with an increasd dose of atenolol/lisinopril, one more tablet of prednisone, amlodipine, and a potassium potassium supplement. He is to follow up with his board runner in [place] and primary care provider after discharge; he is instructed to obtain a repeat serum chemistry in one week. Problem List: -Acute Bronchiectasis exacerbation, on steroid taper / off antibiotics -Constipation, now on bowel regimen -GERD, on omeprazole -Hypertension, on hydrochlorothiazide and lisinopril -Hyperlipidemia, on atorvastatin -BPH, on finasteride and flomax -Macular Degeneration -Normal Pressure Hydrocephalus Plan: -DC to [facility] -Telemetry -Follow off antibiotics -TRC with nebs -Rapid Prednisone taper -Amlodipine/Lisinopril/Atenolol/Potassium -Obtain sputum culture if possible -Pulmonology consult, following -Cardiology consult, following -Bowel Regimen -DVT PPx with lovenox -FULL CODE Problem List: 1. Bronchiectasis Pain Ratin Pain Location: None Pain Goal: Remain pain free Pain Plan: See assessment Tomorrow's Labs & Rationales: None Consulting Request: Consulting Specialty: Pulmonary Disease BAM RODRIGUEZ,[facility] 09/29/16 1233: Attending MD Review Statement Attending Statement Attending MD Statement: examined this patient, discuss w/resident/PA/FINISHED CARPET INSPECTOR, agreed w/resident/PA/FINISHED CARPET INSPECTOR, discussed with family, reviewed EMR data (avail), discussed with nursing, discussed with case mgmt, amended to note Attending Assessment/Plan: Patient seen and examined. Resting comfortably and not in any acute distress. No issues over the weekend. No new complaints today. Complains of mild nonproductive cough. Denies shortness or breath. Denies chest pain. He is maintaining saturation on room air. His potassium level is mildly low this morning and he has received appropriate supplementation. Medically stable to be discharged today. Due to his markedly deconditioned and he will be discharged to [facility] facility for short-term rehabilitation. Following discharge he will follow-up with his primary care provider for referral to pulmonology service in the [place] area.
[2016-09-29] MEDS ORDERED: PREDNISONE10 M2 PO ×2 (07:43→09:26)
[2016-09-29 09:04] VITALS: BP 169/83
[2016-09-29] MEDS ORDERED: LISINOPRIL40 M1 PO (09:25)
--- NOTE | 2016-09-29 09:45 | PN- Cardiology ---
Subjective Subjective: The patient is feeling better. He has less cough. He remains in sinus rhythm. He had one short run of ventricular tachycardia overnight. This is the only significant arrhythmias seen. His blood pressure is still trending high but is improved over yesterday. He is on lisinopril and hydrochlorothiazide for the blood pressure. The potassium is consistently low. It is being replaced. Objective Vital Signs and I&Os Vital Signs Date Time Temp Pulse Resp B/P B/P Pulse O2 O2 Flow FiO2 Mean Ox Delivery Rate 09/30 923 63 169/83 09/29 920 63 169/83 09/29 920 63 169/83 09/29 0904 98.3 63 18 169/83 91 Room Air 09/29 0816 Room Air 1.0L 09/29 0805 Room Air 1.0L 09/28 2336 97.9 74 16 154/90 95 Room Air 09/28 2206 68 160/100 09/28 1622 98.3 65 16 168/84 96 Room Air Intake & Output 09/29 1600 09/29 0800 09/29 0000 09/28 1600 09/28 0800 09/28 0000 Intake Total 100 400 400 300 Output Total 300 Balance 100 100 400 300 Intake, Oral 100 400 400 300 Output, Urine 300 Physical Exam: He is in no distress Chest is clear Heart reveals regular rhythm and no murmurs Extremities no edema Current Medications: E Current Medications Sig/Cynthia Start time Last Medication Dose Route Stop Time Status Admin Acetaminophen 325 MG Q6 PRN 09/25 1115 AC PO Albuterol Sulfate 2 PUF Q4-6 PRN PRN 09/25 1345 AC 09/27 INH 2247 Aspirin 81 MG DAILY 09/25 1346 AC 09/29 PO 0923 Atenolol 75 MG DAILY 09/26 1000 AC 09/29 PO 0921 Atorvastatin Calcium 40 MG 1700 09/25 1700 AC 09/28 PO 1533 Citalopram 20 MG DAILY 09/26 1000 AC 09/29 Hydrobromide PO 09 Docusate Sodium 100 MG DAILY 09/26 1445 AC 09/29 PO 0920 Enoxaparin Sodium 40 MG DAILY 09/25 1100 AC 09/29 SC 0919 Finasteride 5 MG DAILY 09/25 1346 AC 09/29 PO 0923 Folic Acid 1 MG DAILY 09/29 1000 AC 09/29 PO 0926 Hydrochlorothiazide 25 MG DAILY 09/25 1347 AC 09/29 PO 0924 Lisinopril 40 MG BID 09/28 2200 AC 09/29 PO 0924 Lisinopril 40 MG DAILY 09/28 1000 DC 09/28 PO 0929 Methotrexate 15 MG We 10/01 1400 DC PO Methotrexate 5 MG ONCE ONE 09/28 2200 DC 09/28 PO 09/28 2201 2207 Methotrexate 5 MG ONCE ONE 09/28 1600 DC 09/28 PO 09/28 1601 1533 Methotrexate 15 MG [place]@1000 09/28 1000 DC 09/28 PO 1000 Omeprazole 20 MG DAILY 09/25 1347 AC 09/29 PO 0920 Oxycodone HCl 5 MG Q6 PRN 09/25 1115 AC 09/28 PO 2214 Oxycodone/ 2 TAB Q6 PRN 09/25 1115 AC Acetaminophen PO Polyethylene Glycol 17 GM DAILY 09/26 1446 AC 09/29 PO 0932 Potassium Chloride 40 MEQ ONCE ONE 09/29 0830 UNVr PO 09/29 0931 Potassium Chloride 20 MEQ ONCE ONE 09/29 0830 UNVr PO 09/29 0931 Prednisone 20 MG DAILY 09/29 1000 AC 09/29 PO 0925 Prednisone 30 MG DAILY 09/28 1000 DC 09/28 PO 0929 Senna 187 MG AT BEDTIME 09/26 2200 AC 09/28 PO 2204 Tamsulosin HCl 0.4 MG DAILY 09/26 1000 AC 09/29 PO 0921 Tetrahydrozoline HCl 1 GTT Q8P PRN 09/26 1330 AC 09/29 OPH 0920 Results Last 48 Hrs of Labs/Mics: Laboratory Tests 09/29/16 0650: Anion Gap 8, Estimated GFR > 60, BUN/Creatinine Ratio 24.4 09/28/16 0605: Anion Gap 8, Estimated GFR > 60, BUN/Creatinine Ratio 27.5 H, Vitamin B12 > 1000 H, Folate 6.2 Assessment/Plan Assessment/Plan The patient is improved from a pulmonary standpoint. I believe he has acute tracheobronchitis and is being treated with respiratory therapy and antibiotics appropriately. I don't think there is any evidence for congestive heart failure at this point. He is still having some PVCS and had one short episode of nonsustained ventricular tachycardia. I recommend adding amlodipine for better blood pressure control and increasing his Tenormin to 100 mg daily. Once his blood pressure and potassium is controlled I think he can be discharged fairly soon if not today. Continue telemetry? Yes
[2016-09-29] MEDS ORDERED: POTASSIUM CHLO20 ME2 PO (11:16)
[2016-09-29] MEDS ORDERED: NORVASC2.5 M1 PO (11:16)
[2016-09-29] MEDS ORDERED: ATENOLOL25 M1 PO (11:16)
[2016-09-29] MEDS ORDERED: ATENOLOL100 M1 PO (11:17)
[2016-09-29 13:16] VITALS: BP 169/83
== END 2016-09-29 14:10 | DRG 191 ==
LOC: ERH 06:15 → ERHI 10:31 → 1NO 10:31 → ENRESERV 14:23 → ENTRNSPT 16:35 → 1NO 17:05 → CMPTRNSPT 17:57 → 1NO 20:52 → EDPENDDISTM 09-28 12:18 → ENPENDDIS 09-28 13:59 → 1NO 09-29 14:10
PROVIDERS: Internal Medicine Interventional Cardiology; Pediatrics; Student in an Organized Health Care Education/Training Program; ADMIT Internal Medicine
DX: J47.0 Bronchiectasis with acute lower respiratory infection (principal); G91.2 (Idiopathic) normal pressure hydrocephalus; J84.10 Pulmonary fibrosis, unspecified; I69.328 Other speech and language deficits following cerebral infarction; J47.1 Bronchiectasis with (acute) exacerbation; J20.9 Acute bronchitis, unspecified; I10 Essential (primary) hypertension; E78.5 Hyperlipidemia, unspecified; K21.9 Gastro-esophageal reflux disease without esophagitis; N40.0 Benign prostatic hyperplasia without lower urinary tract symptoms; L40.9 Psoriasis, unspecified; I44.4 Left anterior fascicular block; I49.3 Ventricular premature depolarization; E87.6 Hypokalemia; D86.9 Sarcoidosis, unspecified; I25.10 Atherosclerotic heart disease of native coronary artery without angina pectoris; K59.00 Constipation, unspecified; H35.30 Unspecified macular degeneration; Z87.891 Personal history of nicotine dependence
CPT/HCPCS: 1NP; 36415; 74020; 74230; 81001; 82436; 87040; 87070; 87086; 87449; 87450; 93005; 93010; 93306; 96365; 96375; 96376; 97162-GP; 97530-GO; J0456; J0696; J1650; J1940; J2920; J2930; J3490; J7040; J7512; J8610